=== PATIENT | female | born 1985 | race Caucasian/White ===

== ENCOUNTER 2018-04-07 00:49 | Emergency (ER) | payer BC, SELFPAY ==
[2018-04-07 00:50] VITALS: BP 179/95; PULSE 72; RESP 18; TEMP 36.4; O2SAT 98; BMI 41.7
[2018-04-07 02:03] LABS: Absolute Lymphocyte Count 0.89 X10^3/ul (0.83-4.51); Absolute Neutrophil Count 6.3 X10^3/uL (2.0-7.7); Basophil# 0.01 X10^3/uL; Basophil% 0.1 % (0-1); Eosinophil# 0.13 X10^3/uL; Eosinophils% 1.7 % (0-5); Hematocrit 37.2 % (37-47); Hemoglobin 12.1 g/dl (12.0-15.0); Lymphocyte # 0.89 X10^3/ul (4.0); Lymphocyte % 11.6 % (19-41); Mean Corp Hgb Conc 32.5 g/gl (32-36); Mean Corpuscular Hgb 27.6 pg (27.0-32.0); Mean Corpuscular Volume 84.7 fL (81-99); Mean Platelet Vol. 9.5 fl (6.2-12.0); Monocyte# 0.32 X10^3/uL; Monocyte% 4.2 % (0-10); Neutrophil # 6.33 X10^3/uL (2.7-7.7); Neutrophil % 82.1 % (47-70); POSITIVE COUNT NO; POSITIVE DIFFERENTIAL NO; POSITIVE MORPHOLOGY NO; Platelet Count 215 K/mm3 (150-450); RBC Distribution Width CV 13.1 % (11.6-14.6); RBC Distribution Width SD 40.5 fl (35.1-43.9); Red Blood Count 4.39 M/mm3 (4.2-5.4); White Blood Count 7.7 K/mm3 (4.4-11.0)
[2018-04-07 02:18] LABS: ALB/GLOB Ratio 0.7 RATIO (0.9-2.4); AST(SGOT) 16 U/L (15-37); Alanine Aminotransfer ALT/SGPT 16 U/L (13-56); Albumin, Serum 3.1 g/dL (3.2-5.0); Alkaline Phosphatase 60 U/L (45-117); Anion Gap 7 (5-15); BUN 14 mg/dL (7-18); BUN/Creat Ratio 19.1 RATIO (10-20); Calcium,Total 8.2 mg/dL (8.5-10.1); Chloride 109 mmol/L (98-107); Creatinine, Serum 0.73 mg/dL (0.55-1.02); EST Glomerular Filtration Rate 98 mL/min (>60); Est Glom Filt Rate - Afr Amer 119 mL/min (>60); Estimated Creatinine Clearance 88.31 ml/min; Globulin 4.2 g/dL (2.2-4.2); Glucose 101 mg/dL (74-106); Lipase 111 U/L (73-393); Potassium 3.9 mmol/L (3.5-5.1); Protein, Total 7.3 g/dL (6.4-8.2); Sodium Level 140 mmol/L (136-145)
[2018-04-07] MEDS: 0.9% Normal Saline 1,000 ML 1000 ML IV (02:28)
[2018-04-07] MEDS: Mag Hydrox/Al Hydrox/Simeth 30 ML UDC PO (02:28)
[2018-04-07] MEDS: Ondansetron 4 MG/2 ML Vial IV (02:28)
--- NOTE | 2018-04-07 02:47 | ED.DCSUM_ITS ---
- ER Visit Summary Date of Service: 04/07/18 Chief Complaint: Abdominal pain History of Present Illness: The patient is a 32 F who presents with burning epigastric abdominal pain which began about 6 hours ago. She also has had severe diarrhea with his episodes about every 15 minutes. She vomited once. Em esis was nonbloody and nonbilious. No fevers chest pain or shortness of breath. Physical Examination: Afebrile hypertensive vitals otherwise normal Moist mucous membranes Heart regular rate and rhythm Lungs are clear Abdomen soft nondistended she is tender to palpation in the epigastrium without guarding without rebound Alert Test Results: Laboratory studies including CBC CMP and lipase are normal. Emergency Department Course and Treatment: Patient was treated with IV fluids Zofran and given a GI cocktail. On reevaluation she feels much better and reports resolution of symptoms. I discussed prescription for nausea medications at home she states she does not think that she will need this. She understands to return for new or worsening symptoms. She was advised that of her burning epigastric pain continues she could try Pepcid or Prilosec and otherwise to follow-up with her primary care physician. Patient discharged home in improved condition. Treatment Plan: [] Disposition: Discharge Impression: Abdominal pain Vomiting This note was generated with [employer] dictation software. It may contain incorrect words, spelling, and punctuation that were not noted in review of the chart prior to signing ED Disposition - Plan for ED Patient: Chief Complaint: Abd Pain Referrals: Nadeem Delgado DO [Primary Care Provider] -
--- NOTE | 2018-04-07 02:48 | ED.DEP ---
ED Disposition - Plan for ED Patient: Chief Complaint: Abd Pain Instructions: ED Abdominal Pain Unkn Cause Referrals: Nadeem Delgado DO [Primary Care Provider] -
[2018-04-07 02:50] VITALS: PULSE 79; RESP 16; O2SAT 99
--- OUTSIDE RECORDS SUMMARY | 2018-07-09 14:16 | XMS RPT_ITS ---
:1985 Author Organization OHIP Care Team Providers Name Role Phone NADEEM HAWK Referring Unavailable NADEEM HAWK Attending Unavailable NADEEM HAWK Referring Unavailable NADEEM HAWK Referring Unavailable BHARAT JOYCE ([facility]) Attending Unavailable NADEEM HAWK Referring Unavailable BHARAT JOYCE ([facility]) Referring Unavailable LAURENT SHEPARD Attending Unavailable Nadeem Hawk Primary Care Unavailable Ramos Elias Attending Unavailable PROBLEMS PROBLEMS DATE TYPE CONDITION / CODE ATTENDING STATUS SOURCE 04/18/2018 Unknown R10.9 - Ramos Elias Active [place] Unspecified [facility] abdominal pain / Hospital R10.9(ICD-10) Repository 07/12/2017 Active Generalized NA Active [facility] abdominal pain / [place] R10.84(ICD-10) Repository 06/06/2016 Active Encounter for NA Active [facility] general adult [place] medical Repository examination without abnormal findings / Z00.00(ICD-10) 07/01/2017 Active 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 Repository / E01.0(ICD-10) 06/25/2017 Active Other intermission coordinator NA Active [facility] (current) drug [place] therapy / Repository Z79.899(ICD-10) PROCEDURES PROCEDURES No Procedure Records FoundRESULTS RESULTS DISCHARGE INSTRUCTION Observed: 04/07/2018 Status: F Source: [place] 2:49 AM [facility] REPOSITORY [facility] Medical Records Department [facility] [place] [address] Discharge Instruction 04/07/18 0248 MR#: [id number] Acct: [id number] Name: TAWNY STOLL Rep #: [id number] : 1985 32 From: Ramos Elias MD PCP: Nadeem Harris DO Status: REG ER ED Disposition - Plan for ED Patient: Chief Complaint: Abd Pain Instructions: ED Abdominal Pain Unkn Cause Referrals: Nadeem Hawk DO [Primary Care Provider] - What to do if you have Problems For any increased pain, shortness of breath, bleeding, nausea or vomiting, chest pain, or any unexpected problems, contact your Primary Care Provider. Call [facility] ([phone]) or report to the closest Emergency Room. Call 911 if necessary. 04/07/18 0249 <Electronically signed by Ramos Elias MD> Date Ramos Elias MD Cosigner Signature (If Indicated): Date CC: Nadeem Harris DO EMERGENCY DEPARTMENT Observed: 04/07/2018 Status: F Source: [place] SUMMARY 2:48 AM [facility] REPOSITORY [facility] Medical Records Department [address] [place] [address] Emergency Department Summary 04/07/18 0246 MR#: [id number] Acct: [id number] Name: TAWNY STOLL Rep #: [id number] : 1985 32 From: Ramos Elias MD PCP: Nadeem Harris DO Status: REG ER - ER Visit Summary Date of Service: 04/07/18 Chief Complaint: Abdominal pain History of Present Illness: The patient is a 32 F who presents with burning epigastric abdominal pain which began about 6 hours ago. She also has had severe diarrhea with his episodes about every 15 minutes. She vomited once. Emesis was nonbloody and nonbilious. No fevers chest pain or shortness of breath. Physical Examination: Afebrile hypertensive vitals otherwise normal Moist mucous membranes Heart regular rate and rhythm Lungs are clear Abdomen soft nondistended she is tender to palpation in the epigastrium without guarding without rebound Alert Test Results: Laboratory studies including CBC CMP and lipase are normal. Emergency Department Course and Treatment: Patient was treated with IV fluids Zofran and given a GI cocktail. On reevaluation she feels much better and reports resolution of symptoms. I discussed prescription for nausea medications at home she states she does not think that she will need this. She understands to return for new or worsening symptoms. She was advised that of her burning epigastric pain continues she could try Pepcid or Prilosec and otherwise to follow-up with her primary care physician. Patient discharged home in improved condition. Treatment Plan: [] Disposition: Discharge Impression: Abdominal pain Vomiting This note was generated with [employer] dictation software. It may contain incorrect words, spelling, and punctuation that were not noted in review of the chart prior to signing ED Disposition - Plan for ED Patient: Chief Complaint: Abd Pain Referrals: Nadeem Hawk DO [Primary Care Provider] - What to do if you have Problems For any increased pain, shortness of breath, bleeding, nausea or vomiting, chest pain, or any unexpected problems, contact your Primary Care Provider. Call [facility] ([phone]) or report to the closest Emergency Room. Call 911 if necessary. 04/07/18 0248 <Electronically signed by Ramos Elias MD> Date Ramos Elias MD Cosigner Signature (If Indicated): Date CC: Nadeem Harris DO CBC W/DIFF, AUTOMATED Collected: 04/07/2018 Status: F Source: [place] 1:55 AM [facility] REPOSITORY TYPE CODE TESTS RESULT OUT OF RANGE REFERENCE UNITS LAB L100.1000 4.4-11.0 K/mm3 Normal WBC 7.7 LAB L100.1200 4.2-5.4 M/mm3 Normal RBC 4.39 LAB L100.1300 12.0-15.0 g/dl Normal HGB 12.1 LAB L100.1400 37-47 % Normal HCT 37.2 LAB L100.1500 81-99 fL Normal MCV 84.7 LAB L100.1600 27.0-32.0 pg Normal MCH 27.6 LAB L100.1700 32-36 g/gl Normal MCHC 32.5 LAB L100.1810 11.6-14.6 % Normal RDW CV 13.1 LAB L100.1820 35.1-43.9 fl Normal RDW SD 40.5 LAB L100.1900 150-450 K/mm3 Normal PLT 215 LAB L100.2000 6.2-12.0 fl Normal MPV 9.5 LAB L100.2100 47-70 % High NEUT% 82.1 LAB L100.2200 19-41 % Low LY% 11.6 LAB L100.2300 0-10 % Normal MONO% 4.2 LAB L100.2400 0-5 % Normal EO% 1.7 LAB L100.2500 0-1 % Normal BASO% 0.1 LAB L100.2550 0.0-0.9 % Normal IM GRAN % 0.300 Result Comment: IG% - Immature Granulocytes (promyelocytes, myelocytes and metamyelocytes) > 1% indicates that a LEFT SHIFT is Present. LAB L100.2620 2.0-7.7 X10 3/uL Normal Absolute Neut 6.3 LAB L100.2720 0.83-4.51 X10 3/ul Normal Absolute Lymph 0.89 Performed By: #### L100.0100 #### [facility] [address] [place], [address] COMPREHENSIVE METABOLIC Collected: 04/07/2018 Status: F Source: [facility] 1:55 AM [facility] REPOSITORY TYPE CODE TESTS RESULT OUT OF RANGE REFERENCE UNITS LAB L501.0100 74-106 mg/dL Normal GLU 101 Result Comment: Fasting Glucose result from 100 to 125 mg/dL suggests IMPAIRED HOMEOSTASIS per A.D.A. criteria. Please note revised GLUCOSE reference range effective 2017. LAB L501.1000 7-18 mg/dL Normal BUN 14 LAB L501.1100 0.55-1.02 mg/dL Normal CREAT,SERUM 0.73 Result Comment: The validity of the calculated GFR AND GFRAA in patients over 70 years has not been determined. Clinical correlation is essential. LAB L501.1110 >60 mL/min Normal EST GFR 98 Result Comment: Non- GFR Calc LAB L501.1115 >60 mL/min Normal EST GFR - AA 119 Result Comment: GFR Calc LAB L501.1255 ml/min Normal Estimated CRCL 88.31 LAB L501.1300 10-20 RATIO Normal BUN/CRE 19.1 LAB L501.1500 6.4-8. g/dL Normal 2 T PROT 7.3 LAB L501.1800 3.2-5. g/dL Low 0 ALB 3.1 LAB L501.1950 2.2-4. g/dL Normal 2 GLOB 4.2 LAB L501.2000 0.9-2. RATIO Low 4 A/G 0.7 LAB L501.2200 8.5-10 mg/dL Low .1 CA 8.2 LAB L501.4100 15-37 U/L Normal AST 16 LAB L501.4305 45-117 U/L Normal ALK P 60 LAB L501.4405 13-56 U/L Normal ALT 16 LAB L501.4600 0.20-1 mg/dL Normal .00 T BILI 0.20 LAB L501.5300 136-14 mmol/L Normal 5 NA 140 LAB L501.5600 3.5-5. mmol/L Normal 1 K 3.9 LAB L501.5900 98-107 mmol/L High CL 109 LAB L501.6100 21.0-3 mmol/L Normal 2.0 CO2 24.0 LAB L501.6200 5-15 Normal GAP 7 Performed By: #### L500.4050, L501.2450 #### [facility] [address] [facility] [place], [place], [address] LIPASE Collected: 04/07/2018 Status: F Source: [place] 1:55 AM [facility] REPOSITORY TYPE CODE TESTS RESULT OUT OF RANGE REFERENCE UNITS LAB L501.2450 73-393 U/L Normal LIPASE 111 Performed By: #### L500.4050, L501.2450 #### [facility] [address] [place], [address] CNOV Observed: 04/01/2018 Status: COMPLETED Source: [place] 9:00 AM [facility] REPOSITORY Office Visit (WOOB) TAWNY STOLL ([id number]) 1985 F Date Time Provider Department 04/01/18 9:00 AM LAURENT SHEPARD During your visit today, we recorded the following information about you: Blood pressure Weight Height Last Period 116/80 105.2 kg 1.594 m 03/27/18 Laurent Shepard MD 04/01/2018 9:20 AM Signed Tawny Stoll is a 32 year old who presents for her annual gynecologic exam without complaints. Some clots w/ menses, new for her. Menses regular and mostly light for 4 days on the OCPs. Menses: cycles every 28 days and 4 days of flow. Contraception: oral contraceptives HPV vaccine: No Last Pap: 2016 normal HPV: negative History of abnormal pap: Yes Last mammogram: never Sexually active: Yes Obstetric History T2 L2 SAB0 TAB0 Ectopic0 Multiple0 Live Births2 PAST MEDICAL HISTORY Diagnosis Date - Abnormal Pap smear - Abnormal Pap smear of cervix - Chlamydia 2008 - Hypercholesteremia 05/2014 - Ovarian cyst PAST SURGICAL HISTORY Procedure Laterality Date - COLP CERVIX UP VAG LEEP BX 09/08/12 - EXTRACTION ERUPTED TOOTH/EXR 12/23/2014 no difficulty with anesthesia - L'SCOPE CAVITY/CYST SINGLE/MULTIPLE 12/14/2016 Laparascopy with lysis of adhesions of bowel to anterior abdominal wall and mauro. ovarian cystotomy - PAST SURGICAL HISTORY OF Mole removed FAMILY HISTORY Problem Relation Age of Onset - other (FIBROID UTERUS) Mother - other (ENDOMETRIOSIS) Mother - Hypertension Father - Stroke Maternal Grandfather - Heart Maternal Grandfather - Cancer Paternal Grandmother BREAST AND lung, coal exposure - Diabetes Paternal Grandmother - Stroke Paternal Grandfather - Lipids Paternal Grandfather - Heart Paternal Grandfather SOCIAL HISTORY Social History Substance Use Topics - Smoking status: Never Smoker - Smokeless tobacco: Never Used - Alcohol use No REVIEW OF SYSTEMS Abdomen: No abdominal pain, nausea, vomiting, diarrhea, or constipation. No bloating, early satiety, indigestion, or increased flatulence. Bladder: No dysuria, gross hematuria, urinary frequency, urinary urgency, or incontinence. Breast: No breast lumps, nipple d/c, overlying skin changes, redness or skin retraction. Allergies and current medication updated:Yes EXAM: BP 116/80 Ht 5' 2.75 (1.59m) Wt 232 lb (105.2kg) LMP 03/27/2018 BMI 41.42 kg/(m2). GENERAL: pleasant, female in no apparent distress HEENT: Normocephalic, atraumatic, mucus membranes moist and no lesions NECK: Supple, full range of motion, no adenopathy and thyroid normal DERMATOLOGY: Normal, without lesions, non-icteric and non-hirsute BREAST: soft, non-tender, symmetric, no dominant mass, normal nipple-areolar complex, no lymphadenopathy and no nipple discharge CHEST: Normal inspiratory effort ABDOMEN: soft, non-tender and no masses PELVIC: external genitalia normal, normal Bartholin's glands, urethra, [place]'s glands, no vulvar lesions, no cervical lesions, good vaginal support, physiologic discharge present, normal appearing perineal body and perianal region BIMANUAL: uterus normal size, shape and consistency, no adnexal masses and non-tender RECTOVAGINAL: deferred. NEURO: alert and oriented x3,exam grossly non-focal EXTREMITIES: normal ASSESSMENT/PLAN: 1) Health maintenance: Pap/HPV up to date. Mammogram starting age 40. 2) Contraception: oral contraceptives . Contraceptive options reviewed and information provided. 3) STD screening: Declined STD check. 4) Follow up one year or sooner as needed D/w her recommend PNV/folate in case of Laurent Shepard MD Referring Provider: SELF [200] Allergies As of Date: 04/01/2018 (No Known Allergies) Date Reviewed: 04/01/2018 Reviewed by: Laurent Shepard - Fully Assessed Primary Visit Diagnosis:Encounter for gynecological examination (general) (routine) without abnormal findings [Z01.419] Order(s):Norgestimate-Ethinyl Estradiol (ORTHO TRI-CYCLEN, 28,) 0.18/0.215/0.25 mg-35 mcg (28) tabTake 1 tablet by mouth once daily.Disp: 3 PackageRfl: 4 Prescriptions as of 04/01/2018 Sig: NORGESTIMATE-ETHINYL ESTRADIO* Take 1 tablet by mouth once d* Problem List As Of Date 04/01/2018 Noted Resolved Well adult exam [Z00.00] INVALID FOR*07/18/2015 Bleeding in early [O20.9] INVALID FOR*10/30/2013 More... History of LEEP (loop electrosurgical excision *INVALID FOR*07/18/2015 More... GBS (group B streptococcus) UTI complicating pr*INVALID FOR*07/18/2015 Supervision of normal first [Z34.00] INVALID FOR*07/18/2015 Obesity in [O99.210] INVALID FOR*05/01/2016 More... History of LEEP (loop electrosurgical excision *INVALID FOR*05/01/2016 More... History of ovarian cyst [Z87.42] INVALID FOR*05/01/2016 More... Family history of Down syndrome [Z82.79] INVALID FOR*05/01/2016 More... More... Encounter for supervision of normal i*INVALID FOR*05/01/2016 More... Hypertriglyceridemia [E78.1] INVALID FOR* Well adult exam [Z00.00] INVALID FOR* Prescriptions ordered this encounter Disp Refills Start End NORGESTIMATE-ETHINYL ESTRADIOL 0.18 * 3 Pa* 4 04/01/2018 Route: ORAL Sig: Take 1 tablet by mouth once daily. Medications Discontinued During This Encounter Norgestimate-Ethinyl Estradiol (ORTH* 3 Pa* 4 03/20/2017 04/01/2018 Route: ORAL Sig: Take 3 tablets by mouth once daily. Disc: Reason for discontinue is not on file. Disposition: Return in 1 year (on 04/01/2019) for Annual Exam. Follow-up and Disposition History Recorded Encounter Status:Closed by LAURENT SHEPARD MD on 04/01/18 PROGRESS Observed: 04/01/2018 Status: COMPLETED Source: [place] 8:59 AM [facility] ID: [id number] Author: Laurent Shepard Service: (none) Author Type: Physician Type: Progress Notes Filed: 04/01/2018 9:20 AM Note Text: Tawny Stoll is a 32 year old who presents for her annual gynecologic exam without complaints. Some clots w/ menses, new for her. Menses regular and mostly light for 4 days on the OCPs. Menses: cycles every 28 days and 4 days of flow. Contraception: oral contraceptives HPV vaccine: No Last Pap: 2017 normal HPV: negative History of abnormal pap: Yes Last mammogram: never Sexually active: Yes Obstetric History T2 L2 SAB0 TAB0 Ectopic0 Multiple0 Live Births2 PAST MEDICAL HISTORY Diagnosis Date - Abnormal Pap smear - Abnormal Pap smear of cervix - Chlamydia 2008 - Hypercholesteremia 05/2014 - Ovarian cyst PAST SURGICAL HISTORY Procedure Laterality Date - COLP CERVIX UP VAG LEEP BX 09/08/12 - EXTRACTION ERUPTED TOOTH/EXR 12/23/2014 no difficulty with anesthesia - L'SCOPE CAVITY/CYST SINGLE/MULTIPLE 12/14/2016 Laparascopy with lysis of adhesions of bowel to anterior abdominal wall and mauro. ovarian cystotomy - PAST SURGICAL HISTORY OF Mole removed FAMILY HISTORY Problem Relation Age of Onset - other (FIBROID UTERUS) Mother - other (ENDOMETRIOSIS) Mother - Hypertension Father - Stroke Maternal Grandfather - Heart Maternal Grandfather - Cancer Paternal Grandmother BREAST AND lung, coal exposure - Diabetes Paternal Grandmother - Stroke Paternal Grandfather - Lipids Paternal Grandfather - Heart Paternal Grandfather SOCIAL HISTORY Social History Substance Use Topics - Smoking status: Never Smoker - Smokeless tobacco: Never Used - Alcohol use No REVIEW OF SYSTEMS Abdomen: No abdominal pain, nausea, vomiting, diarrhea, or constipation. No bloating, early satiety, indigestion, or increased flatulence. Bladder: No dysuria, gross hematuria, urinary frequency, urinary urgency, or incontinence. Breast: No breast lumps, nipple d/c, overlying skin changes, redness or skin retraction. Allergies and current medication updated:Yes EXAM: BP 116/80 Ht 5' 2.75 (1.59m) Wt 232 lb (105.2kg) LMP 03/27/2018 BMI 41.42 kg/(m2). GENERAL: pleasant, female in no apparent distress HEENT: Normocephalic, atraumatic, mucus membranes moist and no lesions NECK: Supple, full range of motion, no adenopathy and thyroid normal DERMATOLOGY: Normal, without lesions, non-icteric and non-hirsute BREAST: soft, non-tender, symmetric, no dominant mass, normal nipple-areolar complex, no lymphadenopathy and no nipple discharge CHEST: Normal inspiratory effort ABDOMEN: soft, non-tender and no masses PELVIC: external genitalia normal, normal Bartholin's glands, urethra, [place]'s glands, no vulvar lesions, no cervical lesions, good vaginal support, physiologic discharge present, normal appearing perineal body and perianal region BIMANUAL: uterus normal size, shape and consistency, no adnexal masses and non-tender RECTOVAGINAL: deferred. NEURO: alert and oriented x3,exam grossly non-focal EXTREMITIES: normal ASSESSMENT/PLAN: 1) Health maintenance: Pap/HPV up to date. Mammogram starting age 40. 2) Contraception: oral contraceptives . Contraceptive options reviewed and information provided. 3) STD screening: Declined STD check. 4) Follow up one year or sooner as needed D/w her recommend PNV/folate in case of Laurent Shepard MD PROGRESS Observed: 09/27/2017 Status: COMPLETED Source: [place] 11:06 AM [facility] REPOSITORY [facility] ID: [id number] Author: Hernando Lui Service: (none) Author Type: Physician Type: Progress Notes Filed: 09/27/2017 11:33 AM Note Text: Patient presents with: swelling on left side of face: woke up this am with symptoms HPI: Woke this morning with left>right face swelling. Swelling seems to be going down. Some pain along the left jaw. [place] cold last night, hot today. Upset stomach earlier this week. Has a scabbed sore behind her left ear. No tooth pain, numbness, earache, hearing loss, cough, rhinorrhea, or sore throat. MEDICATIONS: Norgestimate-Ethinyl Estradiol (ORTHO TRI-CYCLEN, 28,) 0.18/0.215/0.25 mg-35 mcg (28) tab Take 3 tablets by mouth once daily. ALLERGIES: ALLERGIES No Known Allergies VITALS: BP 108/68 Pulse 74 Temp 37.3 ?C (99.1 ?F) (Tympanic) Resp 16 Wt 104.4 kg (230 lb 3.2 oz) BMI 41.10 kg/m? PHYSICAL EXAM: GEN: pleasant, no acute distress, alert. HEENT: PERRL, EOMI, MMM, No dental carries or fractures. potential mild left jaw swelling. No TMJ tenderness. TMs and canals clear. No palpable parotid swelling. 1cm dry flat eschar/ulcer left occipital lesion without induration or erythema. NECK: supple, no lymphadenopathy, no thyromegaly HEART: regular rate, regular rhythm, no murmurs LUNGS: clear to auscultation, no wheezes or crackles, no increased WOB EXT: no clubbing, no cyanosis, no edema ASSESSMENT/PLAN: 1. Swelling of left side of face - ICD9: 784.2, ICD10: R22.0 (primary diagnosis) 2. Lesion of skin of scalp - ICD9: 709.9, ICD10: L98.9 Improving subjective swelling. Continue to monitor for swelling, parotitis, cellulitis. She may treat with cold compress. Hernando Lui MD CNOV Observed: 09/27/2017 Status: COMPLETED Source: [place] 11:00 AM [facility] REPOSITORY Office Visit (WSTR) TAWNY STOLL ([id number]) 1985 F Date Time Provider Department 09/27/17 11:00 AM HERNANDO LUI [facility] During your visit today, we recorded the following information about you: Temperature Pulse Respiration Blood pressure 99.1 degrees 74/minute 16/minute 108/68 Weight 104.4 kg Hernando Lui MD 09/27/2017 11:33 AM Signed Patient presents with: swelling on left side of face: woke up this am with symptoms HPI: Woke this morning with left>right face swelling. Swelling seems to be going down. Some pain along the left jaw. [place] cold last night, hot today. Upset stomach earlier this week. Has a scabbed sore behind her left ear. No tooth pain, numbness, earache, hearing loss, cough, rhinorrhea, or sore throat. MEDICATIONS: Norgestimate-Ethinyl Estradiol (ORTHO TRI-CYCLEN, 28,) 0.18/0.215/0.25 mg-35 mcg (28) tab Take 3 tablets by mouth once daily. ALLERGIES: ALLERGIES No Known Allergies VITALS: BP 108/68 Pulse 74 Temp 37.3 ?C (99.1 ?F) (Tympanic) Resp 16 Wt 104.4 kg (230 lb 3.2 oz) BMI 41.10 kg/m? PHYSICAL EXAM: GEN: pleasant, no acute distress, alert. HEENT: PERRL, EOMI, MMM, No dental carries or fractures. potential mild left jaw swelling. No TMJ tenderness. TMs and canals clear. No palpable parotid swelling. 1cm dry flat eschar/ulcer left occipital lesion without induration or erythema. NECK: supple, no lymphadenopathy, no thyromegaly HEART: regular rate, regular rhythm, no murmurs LUNGS: clear to auscultation, no wheezes or crackles, no increased WOB EXT: no clubbing, no cyanosis, no edema ASSESSMENT/PLAN: 1. Swelling of left side of face - ICD9: 784.2, ICD10: R22.0 (primary diagnosis) 2. Lesion of skin of scalp - ICD9: 709.9, ICD10: L98.9 Improving subjective swelling. Continue to monitor for swelling, parotitis, cellulitis. She may treat with cold compress. Hernando Lui MD Referring Provider: SELF [200] Allergies As of Date: 09/27/2017 (No Known Allergies) Date Reviewed: 09/27/2017 Reviewed by: Fiorella Cunha LPN - Fully Assessed Reason for Visit: swelling on left side of face [Other] Cmt: woke up this am with symptoms Primary Visit Diagnosis:Swelling of left side of face [R22.0] Other Visit Diagnosis:Lesion of skin of scalp [L98.9] Prescriptions as of 09/27/2017 Sig: NORGESTIMATE-ETHINYL ESTRADIO* Take 3 tablets by mouth once * Problem List As Of Date 09/27/2017 Noted Resolved Well adult exam [Z00.00] INVALID FOR*07/18/2015 Bleeding in early [O20.9] INVALID FOR*10/30/2013 More... History of LEEP (loop electrosurgical excision *INVALID FOR*07/18/2015 More... GBS (group B streptococcus) UTI complicating pr*INVALID FOR*07/18/2015 Supervision of normal first [Z34.00] INVALID FOR*07/18/2015 Obesity in [O99.210] INVALID FOR*05/01/2016 More... History of LEEP (loop electrosurgical excision *INVALID FOR*05/01/2016 More... History of ovarian cyst [Z87.42] INVALID FOR*05/01/2016 More... Family history of Down syndrome [Z82.79] INVALID FOR*05/01/2016 More... More... Encounter for supervision of normal i*INVALID FOR*05/01/2016 More... Hypertriglyceridemia [E78.1] INVALID FOR* Well adult exam [Z00.00] INVALID FOR* Encounter Status:Closed by HERNANDO LUI MD on 09/27/17 PROGRESS Observed: 07/12/2017 Status: COMPLETED Source: [place] 11:00 AM [facility] O ID: [id number] Author: Lyndsey Bradshaw Service: (none) Author Type: (none) Type: Progress Notes Filed: 07/12/2017 11:00 AM Note Text: Radiology Service Progress Note PATIENT NAME: Tawny Stoll DATE OF SERVICE: July 12, 2017 TIME: 11:00 AM PATIENT IDENTITY VERIFICATION COMPLETED USING TWO (2) METHODS: Patient confirmed name verbally and Date of . PATIENT GENDER DATA: Female. status: : No status: NO. PATIENT RELEVANT IMPLANT DATA REVIEWED: Not Applicable RADIOLOGY DEPARTMENT: CT; Exam(s) Completed: Abdomen/Pelvis PERIPHERAL IV DATA: Not applicable SIGNED BY: Lyndsey Bradshaw July 12, 2017 11:[address] ABD/PEL WO IVCON Observed: 07/12/2017 Status: F Source: [place] 10:57 AM [facility] * * *Final Report* * * DATE OF EXAM: Jul 12 2017 10:57AM [facility] 0531 - CT ABD/PEL WO IVCON / PROCEDURE REASON: Generalized abdominal pain * * * * Physician Interpretation * * * * EXAMINATION: CT ABDOMEN AND PELVIS WITHOUT IV CONTRAST CLINICAL HISTORY: Abdominal pain TECHNIQUE: Non-IV contrast imaging of the abdomen and pelvis was performed using standard technique, scanning from just above the dome of the diaphragm to the symphysis pubis. Unenhanced imaging is limited for the evaluation of some intra-abdominal and pelvic pathology. MQ: [id number]_3 Contrast: IV: None Oral: 50 ml of 50ML Omnipaque [address] Radiation dose: Integrated Dose-length product (DLP) for this visit = 927 mGy*cm. CT Dose Reduction Employed: Automated exposure control (AEC) COMPARISON: None. RESULT: Abdomen / Pelvis: Liver: Unremarkable. Biliary: The gallbladder is unremarkable. Spleen: No splenomegaly. Pancreas: Unremarkable. Adrenals: No mass. Kidneys: No calculus, hydronephrosis or finding to suggest a cyst or mass in the unenhanced kidney. GI Tract: No bowel dilation. Normal appendix. Lymph Nodes: No lymphadenopathy. Mesentery/peritoneum: No ascites. Retroperitoneum: No mass. Vasculature: No abdominal aortic or iliac artery aneurysm. Pelvis: No mass or ascites. Bones/Soft Tissues: No acute abnormality. Lower thorax: Unremarkable. IMPRESSION: NO ACUTE FINDING IN THE ABDOMEN OR PELVIS. [facility] Trans[facility] Date/Time: Jul 12 2017 9:09P Dictated by : JERONIMO RYAN MD This examination was interpreted and the report reviewed and electronically signed by: JERONIMO RYAN MD on Jul 12 2017 9:14PM EST [id number] PROGRESS Observed: 07/03/2017 Status: COMPLETED Source: [place] 4:11 PM [facility] REPOSITORY HNO ID: [id number] Author: Bharat Montilla (Criminal Investigator) SEAN Joyce Service: (none) Author Type: Nurse Practitioner Type: Progress Notes Filed: 07/04/2017 8:16 AM Note Text: HPI/CC: Tawny Stoll is a 32 year old female who presents for Abdominal Pain. Was seen by PCP for lower abdominal pain on palpation. At that time thought stool to be the cause, recommended that id patient continues with discomfort after BM to call office. Reports associated increased appetite. Patient continues to have discomfort. Denies N/V, diarrhea, change in BMs, UTI symptoms, fever, chills. ROS as above, otherwise non-contributory. Reviewed PMHx, PSHx, social Hx, medications and allergies. PHYSICAL EXAMINATION: BP 116/76 Pulse 60 Resp 14 Wt 103.9 kg (229 lb) LMP 06/25/2017 BMI 40.89 kg/m2 General appearance: Well appearing, alert, in no acute distress, well-hydrated, well nourished. Skin: Skin color, texture, turgor normal, no suspicious rashes or lesions Lungs: Lungs clear to auscultation. No wheezing, rhonchi, rales Heart: RRR without murmur, gallop, or rubs. No ectopy Abdomen: Negative findings: no masses palpable, no organomegaly and soft, Positive findings: tenderness moderate generalized ASSESSMENT/PLAN: 1. Generalized abdominal pain - ICD9: 789.07, ICD10: R10.84 - Work up with CT Abdomen/Pelvis - CT ABD/PEL WO IVCON - UA DIP B/O - HCG QUAL UR B/O - f/u PRN Bharat Joyce CNP CNOV Observed: 07/03/2017 Status: COMPLETED Source: [place] 3:40 PM [facility] REPOSIT[facility] Office Visit (FAMPWS) TAWNY STOLL ([id number]) 1985 F Date Time Provider Department 07/03/17 3:40 PM BHARAT JOYCE (SEAN) FAMPWS During your visit today, we recorded the following information about you: Pulse Respiration Blood pressure Weight 60/minute 14/minute 116/76 103.9 kg Bharat Joyce CNP, CNP 07/04/2017 8:16 AM Signed HPI/CC: Tawny Stoll is a 32 year old female who presents for Abdominal Pain. Was seen by PCP for lower abdominal pain on palpation. At that time thought stool to be the cause, recommended that id patient continues with discomfort after BM to call office. Reports associated increased appetite. Patient continues to have discomfort. Denies N/V, diarrhea, change in BMs, UTI symptoms, fever, chills. ROS as above, otherwise non-contributory. Reviewed PMHx, PSHx, social Hx, medications and allergies. PHYSICAL EXAMINATION: BP 116/76 Pulse 60 Resp 14 Wt 103.9 kg (229 lb) LMP 06/25/2017 BMI 40.89 kg/m2 General appearance: Well appearing, alert, in no acute distress, well-hydrated, well nourished. Skin: Skin color, texture, turgor normal, no suspicious rashes or lesions Lungs: Lungs clear to auscultation. No wheezing, rhonchi, rales Heart: RRR without murmur, gallop, or rubs. No ectopy Abdomen: Negative findings: no masses palpable, no organomegaly and soft, Positive findings: tenderness moderate generalized ASSESSMENT/PLAN: 1. Generalized abdominal pain - ICD9: 789.07, ICD10: R10.84 - Work up with CT Abdomen/Pelvis - CT ABD/PEL WO IVCON - UA DIP B/O - HCG QUAL UR B/O - f/u PRN Bharat Joyce CNP Referring Provider: SELF [200] Allergies As of Date: 07/03/2017 (No Known Allergies) Date Reviewed: 07/03/2017 Reviewed by: Milagros Rao Ma - Fully Assessed Reason for Visit: Abdominal Pain [1] Primary Visit Diagnosis:Generalized abdominal pain [R10.84] Order(s):CT ABD/PEL WO IVCON [[id number]] Order #: [id number] FUTURE [] enteric contrast (radiology procedure)Take 1 Each by mouth one time only for [address] ABD/PEL WO Routine order Administer, As Directed One Time Only, via Oral, Rectal, both Oral and Rectal, Enteric Tube, Stoma or Indwelling Catheter, Enteric Contrast as designated per enteric contrast guidelinesDisp: 1 EachRfl: 0 UA DIP B/O [[id number]] Order #: [id number] HCG QUAL UR B/O [[id number]] Order #: [id number] Prescriptions as of 07/03/2017 Sig: NORGESTIMATE-ETHINYL ESTRADIO* Take 3 tablets by mouth once * ENTERIC CONTRAST (RADIOLOGY P* Take 1 Each by mouth one time* Problem List As Of Date 07/03/2017 Noted Resolved Well adult exam [Z00.00] INVALID FOR*07/18/2015 Bleeding in early [O20.9] INVALID FOR*10/30/2013 More... History of LEEP (loop electrosurgical excision *INVALID FOR*07/18/2015 More... GBS (group B streptococcus) UTI complicating pr*INVALID FOR*07/18/2015 Supervision of normal first [Z34.00] INVALID FOR*07/18/2015 Obesity in [O99.210] INVALID FOR*05/01/2016 More... History of LEEP (loop electrosurgical excision *INVALID FOR*05/01/2016 More... History of ovarian cyst [Z87.42] INVALID FOR*05/01/2016 More... Family history of Down syndrome [Z82.79] INVALID FOR*05/01/2016 More... More... Encounter for supervision of normal i*INVALID FOR*05/01/2016 More... Hypertriglyceridemia [E78.1] INVALID FOR* Well adult exam [Z00.00] INVALID FOR* Prescriptions ordered this encounter Disp Refills Start End ENTERIC CONTRAST (RADIOLOGY PROCEDUR* 1 Ea* 0 07/03/2017 07/03/2017 Class: In Office Route: ORAL Sig: Take 1 Each by mouth one time only for [address] ABD/PEL WO Routine order Administer, As Directed One Time Only, via Oral, Rectal, both Oral and Rectal, Enteric Tube, Stoma or Indwelling Catheter, Enteric Contrast as designated per enteric contrast guidelines Encounter Status:Closed by BHARAT JOYCE CNP on 07/04/17 COMP METABOLIC PANEL Collected: 07/01/2017 Status: F Source: [place] 8:21 AM [facility] REPOSITORY TYPE CODE TESTS RESULT OUT OF REFERENCE UNITS RANGE LAB TP 6.3-8.0 g/dL Protein, Total 7.3 LAB ALB 3.9-4.9 g/dL Albumin 3.9 LAB CA 8.5-10.2 mg/dL Calcium, Total 8.9 LAB TBIL 0.2-1.3 mg/dL Bilirubin, Total 0.2 LAB ALKP 32-117 U/L Alkaline Phosphatase 59 LAB AST 13-35 U/L AST 17 LAB GLU 74-99 mg/dL Glucose 78 Result Comment: The Canadian Diabetes Association (ADA) provides guidance for cutoff values for fasting glucose and random glucose. The ADA defines fasting as no caloric intake for at least 8 hours. Fas ting plasma glucose results between 100 to 125 mg/dL indicate increased risk for diabetes (prediabetes). Fasting plasma glucose results greater than or equal to 126 mg/dL meet the criteria for diagnosis of diabetes. In the absence of unequivocal hyperglycemia, results should be confirmed by repeat testing. In a patient with classic symptoms of hyperglycemia or hyperglycemic crisis, random plasma glucose results greater than or equal to 200 mg/dL meet the criteria for diagnosis of diabetes. Reference: Standards of Medical Care in Diabetes 2016, Canadian Diabetes Association. Diabetes Care. 2016.39(Suppl 1). LAB BUN 7-21 mg/dL BUN 11 LAB CRET 0.58-0.96 mg/dL Creatinine 0.83 LAB NA 136-144 mmol/L Sodium 140 LAB K 3.7-5.1 mmol/L Potassium 3.9 LAB CL 97-105 mmol/L Chloride 101 LAB CO2 22-30 mmol/L CO2 26 LAB AGAP 9-18 mmol/L Anion Gap 13 LAB ALT 7-38 U/L ALT 13 LAB GFRAA eGFR- Amer. >60 LAB GFRNAA . eGFR-All Other Races >60 Result Comment: eGFR (Estimated GFR) Units of measure: mL/min/1.73 meters squared eGFR is derived from the reexpressed MDRD Study equation using the following parameters: serum creatinine, age, gender and race. The creatinine assay has been calibrated to be traceable to IDMS. An eGFR <60 mL/min/1.73m2 for >3 months is consistent with chronic kidney disease. Refer to KDOQI guidelines for clinical interpretation. In patients with unstable renal function, e.g. those with acute kidney injury, the eGFR may not accurately reflect actual GFR. Performed By: #### CMP, FT4, T3, TSH #### [facility] [address] [place], [place] [address] FREE T4 Collected: 07/01/2017 Status: F Source: [place] 8:21 AM [facility] REPOSITORY TYPE CODE TESTS RESULT OUT OF RANGE REFERENCE UNITS LAB FT4 0.9-1.7 ng/dL Free T4 1.0 Performed By: #### CMP, FT4, T3, TSH #### [facility] [address] [place], [place] [address] T3 Collected: 07/01/2017 Status: F Source: [facility] 8:21 AM [facility] REPOSITORY TYPE CODE TESTS RESULT OUT OF RANGE REFERENCE UNITS LAB T3 79-165 ng/dL T3 151 Performed By: #### CMP, FT4, T3, TSH #### [facility] [address] [place], [place] [address] TSH Collected: 07/01/2017 Status: F Source: [place] 8:21 AM [facility] REPOSITORY TYPE CODE TESTS RESULT OUT OF RANGE REFERENCE UNITS LAB TSH 0.400-5.500 uU/mL TSH 1.210 Result Comment: If the patient is , TSH reference range varies by gestational period: First Trimester 0.100-2.500 uU/mL Second Trimester 0.200-3.000 uU/mL Third Trimester 0.300-3.000 uU/mL References: 1. Cohen L, Tl M, Av EK, et al. Management of Thyroid Dysfunction during and : An Endocrine Society Clinical Practice Guideline. J Clin Endocrinol Metab, 2012:97:2063-1724. 2. Corby HERNÁNDEZ. Overview of thyroid disease in . UpToDate. 2016. Accessed on October 07, 2015. Performed By: #### CMP, FT4, T3, TSH #### [facility] [address] [place], [place] [address] PROGRESS Observed: 07/01/2017 Status: COMPLETED Source: [place] 7:50 AM [facility] REPOSIT[facility] HNO ID: [id number] Author: Nadeem Hawk Service: (none) Author Type: Physician Type: Progress Notes Filed: 07/01/2017 8:27 AM Note Text: CC: Tawny Stoll is a 32 year old female who presents to the office for a physical HPI: Hyperlipidemia, total and LDL Cholesterol, Total Date Value Ref Range Status 06/25/2017 260 (H) <200 mg/dL Final Comment: <200 mg/dL, Desirable 200-239 mg/dL, Borderline high >239 mg/dL, High HDL Cholesterol Date Value Ref Range Status 06/25/2017 83 >39 mg/dL Final Comment: 40-59 mg/dL, Acceptable >59 mg/dL, High: Negative risk factor for coronary heart disease <40 mg/dL, Low: Positive risk factor for coronary heart disease LDL Cholesterol Date Value Ref Range Status 06/25/2017 150 (H) <100 mg/dL Final Comment: <100 mg/dL, Optimal 100-129 mg/dL, Near optimal/above optimal 130-159 mg/dL, Borderline high 160-189 mg/dL, High >189 mg/dL, Very high Secondary prevention optimal LDL Cholesterol levels are recommended to be < 70 mg/dL Triglyceride Date Value Ref Range Status 06/25/2017 134 <150 mg/dL Final Comment: <150 mg/dL, Normal 150-199 mg/dL, Borderline high 200-499 mg/dL, High >499 mg/dL, Very high Need for fasting glucose for insurance purposes Low back pain, increased with prolonged sitting then getting up to stand, sits for 8-9 hours per day at her job. No new paresthesias or injuries, no bowel or bladder changes. HM: UTD PAST MEDICAL HISTORY Diagnosis Date - Abnormal Pap smear - Abnormal Pap smear of cervix - Chlamydia 2008 - Hypercholesteremia 05/2014 - Ovarian cyst PAST SURGICAL HISTORY Procedure Laterality Date - COLP CERVIX UP VAG LEEP BX 09/08/12 - EXTRACTION ERUPTED TOOTH/EXR 12/23/2014 no difficulty with anesthesia - L'SCOPE CAVITY/CYST SINGLE/MULTIPLE 12/14/2016 Laparascopy with lysis of adhesions of bowel to anterior abdominal wall and mauro. ovarian cystotomy - PAST SURGICAL HISTORY OF Mole removed Social History: Social History Substance Use Topics - Smoking status: Never Smoker - Smokeless tobacco: Never Used - Alcohol use No FAMILY HISTORY Problem Relation Age of Onset - FIBROID UTERUS [OTHER] Mother - ENDOMETRIOSIS [OTHER] Mother - Hypertension Father - Stroke Maternal Grandfather - Heart Maternal Grandfather - Cancer Paternal Grandmother BREAST AND lung, coal exposure - Diabetes Paternal Grandmother - Stroke Paternal Grandfather - Lipids Paternal Grandfather - Heart Paternal Grandfather Current Outpatient prescriptions: Norgestimate-Ethinyl Estradiol (ORTHO TRI-CYCLEN, 28,) 0.18/0.215/0.25 mg-35 mcg (28) tab Take 3 tablets by mouth once daily. ibuprofen (MOTRIN) 600 mg tablet Take 1 tablet by mouth every 6 hours as needed for Pain. FOR PAIN. Allergies: ALLERGIES No Known Allergies ROS: See HPI PE: 07/01/17 0744 BP: 122/80 Pulse: 60 Resp: 16 Temp: 36.1 ?C (97 ?F) TempSrc: Left Tympanic Weight: 103.4 kg (228 lb) Gen: AANDO, NAD, non-toxic appearing, Pleasant, cooperative HEENT: NT/AC, PERRLA, EOMs intact b/l, nares clear and patent b/l, pharynx without erythema, exudate or lesions. Uvula midline. EACs without erythema or debris. TMs pearly lockhart with intact landmarks b/l. Neck: supple, No cervical LAD, mild NT thyromegaly, no carotid bruits CV: RRR, normal S1 and S2, no murmurs, no gallops, no rubs, Pulses 2+ and symmetric in UE and LE b/l Lungs: normal respiratory effort, CTA b/l, no wheezing or rhonchi or rales Abd: soft, obese, NT, ND, +BS, no hepatosplenomegaly MS: mild SI joint TTP, overall normal ROM Neuro: CN II-XII intact b/l, strength 5/5 b/l UE and LE, DTRs 2/4 UE and LE, sensation intact. Skin: warm, dry, intact, No rashes or lesions on exposed skin. ASSESSMENT/PLAN: 1. Well adult exam - ICD9: V70.0, ICD10: Z00.00 (primary diagnosis) - Encouraged monthly Breast Self Exam - Follow up for annual exam in one year. - COMP METABOLIC PANEL 2. Chronic midline low back pain without sciatica - ICD9: 724.2, 338.29, ICD10: M54.5, G89.29 Chronic low back pain - Warm moist heat for 20 min three times a day - NSAIDS- see orders - Xrays- see orders - LUMBOSACRAL SUPPORT - XR LUMBAR GENERAL 3V AP/LAT/L5-S1 - CONSULT TO CHIROPRACTOR 3. Hypertriglyceridemia - ICD9: 272.1, ICD10: E78.1 - suboptimal control - Encouraged following a low fat, low cholesterol diet. - Discussed the benefits of regular aerobic exercise and weight loss. - Check fasting lipid panel and ALT in 6 months. 4. Thyromegaly - ICD9: 240.9, ICD10: E01.0 - labs as ordered - TSH BLD - T4 FREE/FREE THYROX - T3 BLD Nadeem Hawk DO To ER if develops chest pain, shortness of breath, or severe worsening of symptoms. Discussed risks, benefits, alternatives, and potential side effects of medications. Patient expressed understanding and agreed with the plan. Nadeem Hawk DO [address] [place] [address] MICHAEL Observed: 07/01/2017 Status: COMPLETED Source: [place] 7:40 AM [facility] RE[facility] Office Visit (FAMPWS) TAWNY STOLL ([id number]) 1985 F Date Time Provider Department 07/01/17 7:40 AM NADEEM HAWK [place] During your visit today, we recorded the following information about you: Temperature Pulse Respiration Blood pressure 97 degrees 60/minute 16/minute 122/80 Weight Last Period 103.4 kg 06/25/17 Nadeem Hawk DO 07/01/2017 8:27 AM Signed CC: Tawny S Mango is a 32 year old female who presents to the office for a physical HPI: Hyperlipidemia, total and LDL Cholesterol, Total Date Value Ref Range Status 06/25/2017 260 (H) ANDlt;200 mg/dL Final Comment: ANDlt;200 mg/dL, Desirable 200-239 mg/dL, Borderline high ANDgt;239 mg/dL, High HDL Cholesterol Date Value Ref Range Status 06/25/2017 83 ANDgt;39 mg/dL Final Comment: 40-59 mg/dL, Acceptable ANDgt;59 mg/dL, High: Negative risk factor for coronary heart disease ANDlt;40 mg/dL, Low: Positive risk factor for coronary heart disease LDL Cholesterol Date Value Ref Range Status 06/25/2017 150 (H) ANDlt;100 mg/dL Final Comment: ANDlt;100 mg/dL, Optimal 100-129 mg/dL, Near optimal/above optimal 130-159 mg/dL, Borderline high 160-189 mg/dL, High ANDgt;189 mg/dL, Very high Secondary prevention optimal LDL Cholesterol levels are recommended to be ANDlt; 70 mg/dL Triglyceride Date Value Ref Range Status 06/25/2017 134 ANDlt;150 mg/dL Final Comment: ANDlt;150 mg/dL, Normal 150-199 mg/dL, Borderline high 200-499 mg/dL, High ANDgt;499 mg/dL, Very high Need for fasting glucose for insurance purposes Low back pain, increased with prolonged sitting then getting up to stand, sits for 8-9 hours per day at her job. No new paresthesias or injuries, no bowel or bladder changes. HM: UTD PAST MEDICAL HISTORY Diagnosis Date - Abnormal Pap smear - Abnormal Pap smear of cervix - Chlamydia 2008 - Hypercholesteremia 05/2014 - Ovarian cyst PAST SURGICAL HISTORY Procedure Laterality Date - COLP CERVIX UP VAG LEEP BX 09/08/12 - EXTRACTION ERUPTED TOOTH/EXR 12/23/2014 no difficulty with anesthesia - L'SCOPE CAVITY/CYST SINGLE/MULTIPLE 12/14/2016 Laparascopy with lysis of adhesions of bowel to anterior abdominal wall and mauro. ovarian cystotomy - PAST SURGICAL HISTORY OF Mole removed Social History: Social History Substance Use Topics - Smoking status: Never Smoker - Smokeless tobacco: Never Used - Alcohol use No FAMILY HISTORY Problem Relation Age of Onset - FIBROID UTERUS [OTHER] Mother - ENDOMETRIOSIS [OTHER] Mother - Hypertension Father - Stroke Maternal Grandfather - Heart Maternal Grandfather - Cancer Paternal Grandmother BREAST AND lung, coal exposure - Diabetes Paternal Grandmother - Stroke Paternal Grandfather - Lipids Paternal Grandfather - Heart Paternal Grandfather Current Outpatient prescriptions: Norgestimate-Ethinyl Estradiol (ORTHO TRI-CYCLEN, 28,) 0.18/0.215/0.25 mg-35 mcg (28) tab Take 3 tablets by mouth once daily. ibuprofen (MOTRIN) 600 mg tablet Take 1 tablet by mouth every 6 hours as needed for Pain. FOR PAIN. Allergies: ALLERGIES No Known Allergies ROS: See HPI PE: 07/01/17 0744 BP: 122/80 Pulse: 60 Resp: 16 Temp: 36.1 ?C (97 ?F) TempSrc: Left Tympanic Weight: 103.4 kg (228 lb) Gen: AANDamp;O, NAD, non-toxic appearing, Pleasant, cooperative HEENT: NT/AC, PERRLA, EOMs intact b/l, nares clear and patent b/l, pharynx without erythema, exudate or lesions. Uvula midline. EACs without erythema or debris. TMs pearly lockhart with intact landmarks b/l. Neck: supple, No cervical LAD, mild NT thyromegaly, no carotid bruits CV: RRR, normal S1 and S2, no murmurs, no gallops, no rubs, Pulses 2+ and symmetric in UE and LE b/l Lungs: normal respiratory effort, CTA b/l, no wheezing or rhonchi or rales Abd: soft, obese, NT, ND, +BS, no hepatosplenomegaly MS: mild SI joint TTP, overall normal ROM Neuro: CN II-XII intact b/l, strength 5/5 b/l UE and LE, DTRs 2/4 UE and LE, sensation intact. Skin: warm, dry, intact, No rashes or lesions on exposed skin. ASSESSMENT/PLAN: 1. Well adult exam - ICD9: V70.0, ICD10: Z00.00 (primary diagnosis) - Encouraged monthly Breast Self Exam - Follow up for annual exam in one year. - COMP METABOLIC PANEL 2. Chronic midline low back pain without sciatica - ICD9: 724.2, 338.29, ICD10: M54.5, G89.29 Chronic low back pain - Warm moist heat for 20 min three times a day - NSAIDS- see orders - Xrays- see orders - LUMBOSACRAL SUPPORT - XR LUMBAR GENERAL 3V AP/LAT/L5-S1 - CONSULT TO CHIROPRACTOR 3. Hypertriglyceridemia - ICD9: 272.1, ICD10: E78.1 - suboptimal control - Encouraged following a low fat, low cholesterol diet. - Discussed the benefits of regular aerobic exercise and weight loss. - Check fasting lipid panel and ALT in 6 months. 4. Thyromegaly - ICD9: 240.9, ICD10: E01.0 - labs as ordered - TSH BLD - T4 FREE/FREE THYROX - T3 BLD Nadeem Hawk DO To ER if develops chest pain, shortness of breath, or severe worsening of symptoms. Discussed risks, benefits, alternatives, and potential side effects of medications. Patient expressed understanding and agreed with the plan. Nadeem Hawk DO [address] [place] [address] Referring Provider: NADEEM HAWK [[id number]] Allergies As of Date: 07/01/2017 (No Known Allergies) Date Reviewed: 03/20/2017 Reviewed by: Laurent Shepard - Fully Assessed Reason for Visit: Physical [83] Primary Visit Diagnosis:Well adult exam [Z00.00] Other Visit Diagnoses:Chronic midline low back pain without sciatica [M54.5, G89.29] Hypertriglyceridemia [E78.1] Thyromegaly [E01.0] Order(s):LUMBOSACRAL SUPPORT [[id number]] Order #: [id number] XR LUMBAR GENERAL 3V AP/LAT/L5-S1 [[id number]] Order #: [id number] FUTURE COMP METABOLIC PANEL [SQCMP] Order #: [id number] FUTURE CONSULT TO CHIROPRACTOR [[id number]] Order #: [id number]: 1 TSH BLD [SQTSH] Order #: [id number] FUTURE T4 FREE/FREE THYROX [SQFT4] Order #: [id number] FUTURE T3 BLD [SQT3] Order #: [id number] FUTURE Prescriptions as of 07/01/2017 Sig: NORGESTIMATE-ETHINYL ESTRADIO* Take 3 tablets by mouth once * Problem List As Of Date 07/01/2017 Noted Resolved Well adult exam [Z00.00] INVALID FOR*07/18/2015 Bleeding in early [O20.9] INVALID FOR*10/30/2013 More... History of LEEP (loop electrosurgical excision *INVALID FOR*07/18/2015 More... GBS (group B streptococcus) UTI complicating pr*INVALID FOR*07/18/2015 Supervision of normal first [Z34.00] INVALID FOR*07/18/2015 Obesity in [O99.210] INVALID FOR*05/01/2016 More... History of LEEP (loop electrosurgical excision *INVALID FOR*05/01/2016 More... History of ovarian cyst [Z87.42] INVALID FOR*05/01/2016 More... Family history of Down syndrome [Z82.79] INVALID FOR*05/01/2016 More... More... Encounter for supervision of normal i*INVALID FOR*05/01/2016 More... Hypertriglyceridemia [E78.1] INVALID FOR* Well adult exam [Z00.00] INVALID FOR* Medications Discontinued During This Encounter ibuprofen (MOTRIN) 600 mg tablet 30 t* 1 11/30/2016 07/01/2017 Class: Print RX Route: ORAL Sig: Take 1 tablet by mouth every 6 hours as needed for Pain. FOR PAIN. Disc: Reason for discontinue is not on file. Letter Text [facility] [address] [place], [place] [address] Tawny Stoll [address] [id number] Clinic #: [id number] 07/01/2017 To whom it may concern, Tawny would benefit from a stand up desk positioning at work due to mild lumbar back pain. Call office with any questions. Nadeem Hawk DO Encounter Status:Closed by NADEEM HAWK DO on 07/01/17 LIPID PANEL, BASIC Collected: 06/25/2017 Status: F Source: [place] 8:41 AM [facility] REPOSITORY TYPE CODE TESTS RESULT OUT OF REFERENCE UNITS RANGE LAB CHOL <200 mg/dL Cholesterol High 260 Result Comment: <200 mg/dL, Desirable 200-239 mg/dL, Borderline high >239 mg/dL, High LAB TRIGLY <150 mg/dL Triglyceride 134 Result Comment: <150 mg/dL, Normal 150-199 mg/dL, Borderline high 200-499 mg/dL, High >499 mg/dL, Very high LAB HDL >39 mg/dL HDL-Cholesterol 83 Result Comment: 40-59 mg/dL, Acceptable >59 mg/dL, High: Negative risk factor for coronary heart disease <40 mg/dL, Low: Positive risk factor for coronary heart disease LAB LDL <100 mg/dL LDL-Cholesterol High 150 Result Comment: <100 mg/dL, Optimal 100-129 mg/dL, Near optimal/above optimal 130-159 mg/dL, Borderline high 160-189 mg/dL, High >189 mg/dL, Very high Secondary prevention optimal LDL Cholesterol levels are recommended to be < 70 mg/dL LAB NONHDL <130 mg/dL Non HDL High Cholesterol 177 Result Comment: <130 mg/dL, Optimal 130-159 mg/dL, Near optimal/above optimal 160-189 mg/dL, Borderline high 190-219 mg/dL, High >219 mg/dL, Very high Secondary prevention optimal non HDL Cholesterol levels are recommended to be < 100 mg/dL LAB FT hrs Fasting Time 10 LAB VLDL <30 mg/dL VLDL Cholesterol 27 LAB TCHDL <5.10 TC:HDL Ratio 3.13 LAB LDLHDL <2.54 LDL:HDL Ratio 1.81 Result Comment: Reference: 1. National Cholesterol Education Program ATP III Guideline At-A-Glance Quick Desk Reference: National Heart, Lung, and Blood [place]. National Institutes of Health. 2001: NIH Publication No. 01-3305. 2. An International Atherosclerosis Society position paper: global recommendations for the management of dyslipidemia: executive summary, Atherosclerosis. 2014: 232(2):410-413. Performed By: #### LIPB #### [facility] [address] [place] [address] CNPTOUTREACH Observed: 06/18/2017 Status: COMPLETED Source: [place] 12:00 AM [facility] Patient Outreach (INTMWH) TAWNY STOLL ([id number]) 1985 F Date Time Provider Department 06/18/17 NADEEM HAWK [facility] During your visit today, we recorded the following information about you: Allergies As of Date: 06/18/2017 (No Known Allergies) Date Reviewed: 03/20/2017 Reviewed by: Laurent Shepard - Fully Assessed Visit Diagnosis:Medication management [Z79.899] Order(s):LIPID PANEL BASIC [SQLIPB] Order #: [id number] FUTURE Prescriptions as of 06/18/2017 Sig: NORGESTIMATE-ETHINYL ESTRADIO* Take 3 tablets by mouth once * X IBUPROFEN 600 MG TABLET Take 1 tablet by mouth every * Problem List As Of Date 06/18/2017 Noted Resolved Well adult exam [Z00.00] INVALID FOR*07/18/2015 Bleeding in early [O20.9] INVALID FOR*10/30/2013 More... History of LEEP (loop electrosurgical excision *INVALID FOR*07/18/2015 More... GBS (group B streptococcus) UTI complicating pr*INVALID FOR*07/18/2015 Supervision of normal first [Z34.00] INVALID FOR*07/18/2015 Obesity in [O99.210] INVALID FOR*05/01/2016 More... History of LEEP (loop electrosurgical excision *INVALID FOR*05/01/2016 More... History of ovarian cyst [Z87.42] INVALID FOR*05/01/2016 More... Family history of Down syndrome [Z82.79] INVALID FOR*05/01/2016 More... More... Encounter for supervision of normal i*INVALID FOR*05/01/2016 More... Hypertriglyceridemia [E78.1] INVALID FOR* Well adult exam [Z00.00] INVALID FOR* Encounter Status:Closed by [employer], PRODUSER on 01/31/18 ALLERGIES ALLERGIES DATE TYPE / CODE NAME / CODE REACTION SEVERITY SOURCE 04/07/2018 Drug adhesive/[id number] REDNESS TO AREA [facility] 536156(SNOM Repository ED CT) Drug NO KNOWN [facility] Class/59393 ALLERGIES [place] 1003(SNOMED Repository CT) ENCOUNTERS ENCOUNTERS ADMIT/DISCHARGE ACCOUNT ADMITTING ENCOUNTER LOCATION SOURCE NUMBER CLASS 04/07/2018/04/07/20 [id number] Emergency Adonis [place] 18 [facility] ing:ED Repository 04/01/2018/04/01/20 [id number] Ambulatory [address] [place] Repository 09/27/2017/10/01/19 [id number] Ambulatory [address] [place] Repository 07/12/2017/07/13/19 [id number] Ambulatory [address] [place] Repository 07/12/2017/07/13/19 [id number] Ambulatory [address] [place] Repository 07/03/2017/07/05/19 [id number] Ambulatory [address] [place] Repository 07/01/2017/07/02/19 [id number] Ambulatory [address] [place] Repository 07/01/2017/07/03/19 [id number] Ambulatory [address] Repository 06/25/2017/06/26/19 [id number] Ambulatory [address] Repository PAYERS PAYERS ENCOUNTER GUARANTOR PAYER SUBSCRIBER SOURCE 04/07/2018 TAWNY S Primary TAWNY S [place] [id number] Manuela Insurance:ANTHEMPolic CONRADDOB: [facility] Number: [id number] [address]Rpj: [phone] [id number] Repository [phone] () Date:[id number] [address]GC: 04/07/2018 Secondary NOT GIVENUNK [place] Insurance:SELF PAY [facility] Number: Effective Repository Date:2018-04-07
== END 2018-04-07 02:55 | disposition home or self-care (01) ==
LOC: ED 01:19
PROVIDERS: Emergency Provider Emergency Medicine; Family Provider Student in an Organized Health Care Education/Training Program; PCP Student in an Organized Health Care Education/Training Program
DX: R10.13 Epigastric pain (principal); R19.7 Diarrhea, unspecified; R11.2 Nausea with vomiting, unspecified
CPT/HCPCS: 80053; 83690; 85025; 96361; 96374; 99285; J7030; A4216; J2405

== ENCOUNTER 2019-10-07 09:20 | Outpatient (CLI) | payer BC, SELFPAY ==
[2019-10-07 09:30] VITALS: PULSE 91; TEMP 37.1; O2SAT 99
[2019-10-07 09:32] VITALS: BP 135/72; PULSE 95
[2019-10-07 09:38] VITALS: BMI 47.6
--- NOTE | 2019-10-08 08:54 | OB.TRI.NOTE ---
- Problem List (1) Decreased movement Status: Acute (2) 35 weeks gestation of Status: Acute (3) Dichorionic diamniotic twin Status: Acute History of Present Illness Date of Service: 10/07/19 Was patient seen by the physician?: No Reason For Visit: MONITORING History of Present Illness: Pt presented to the office with decreased movement of baby B Allergies adhesive Adverse Reaction (Verified 04/07/18 00:49) REDNESS TO AREA Physical Exam Vitals: Vital Signs Temp Pulse BP Pulse Ox 98.8 F 95 135/72 H 99 10/07/19 09:30 10/07/19 09:32 10/07/19 09:32 10/07/19 09:30 NST - FHR Rate Baby A Baseline: 130 Variability:: Moderate Accelerations:: 15 x 15 Decelerations:: None NST Reactive:: Yes Uterine Activity:: Ctx's q 5-7 min - FHR Rate Baby B Baseline: 140 Variability:: Moderate Accelerations:: 15 x 15 Decelerations:: None NST Reactive:: Yes Uterine Activity:: Ctx's q 5-7 min Impression/Plan NST reactive x 2
== END 2019-10-07 10:00 | disposition home or self-care (01) ==
LOC: WPOUT 09:23 → OBT 09:24
PROVIDERS: PCP Student in an Organized Health Care Education/Training Program; Referring Provider Advanced Practice Midwife; Visit Provider Advanced Practice Midwife
DX: O36.8120 Decreased fetal movements, second trimester, not applicable or unspecified (principal); O30.022 Conjoined twin pregnancy, second trimester; Z3A.35 35 weeks gestation of pregnancy
CPT/HCPCS: 59025; 59050; 99218; G0378

== ENCOUNTER → 2019-10-21 09:05 | Outpatient (CLI) | payer BC, SELFPAY ==
--- NOTE | 2019-10-21 12:40 | HP.PCM_ITS ---
History and Physical Date of Admission: 10/21/19 HPI: The patient is a 34 year old female presenting for pre-operative visit. She is scheduled for??and bilateral salpingectomy, for?transvers/breech twins, sterilization request on?10/28/2019. ??Procedure discussed along with risks, benefits and complications. ?Other alternatives discussed for management. Consent form signed??Yes.? PAST MEDICAL HISTORY PAST MEDICAL HISTORY Diagnosis Date ? Abnormal Pap smear ? ? Abnormal Pap smear of cervix ? ? Chlamydia 2009 ? Hypercholesteremia 05/2014 ? Ovarian cyst ? ? depression ? ? ? PAST SURGICAL HISTORY PAST SURGICAL HISTORY Procedure Laterality Date ? COLP CERVIX UP VAG LEEP BX ? 09/08/12 ? EXTRACTION, ERUPTED TOOTH OR EXPOSED ROOT (ELEVATION AND/OR FORCEPS REMOVAL) ? 12/23/2014 ? no difficulty with anesthesia ? L'SCOPE CAVITY/CYST SINGLE/MULTIPLE ? 12/14/2016 ? Laparascopy with lysis of adhesions of bowel to anterior abdominal wall and mauro. ovarian cystotomy ? PAST SURGICAL HISTORY OF ? ? ? Mole removed ? ? CURRENT MEDICATIONS Current Outpatient Medications Medication Sig Dispense Refill ? chlorhexidine (ANTISEPTIC SKIN CLNSR,CHLORHE,) 4 % external liquid Apply to affected area as directed for 14 days. bid x 2 weeks 100 mL 1 ? nystatin (MYCOSTATIN) powder Apply 1 application to affected area three times daily. 1 Bottle 1 ? famotidine (PEPCID) 20 mg tablet Take 1 tablet by mouth twice daily. 60 tablet 1 ? Lebcmrjh-Ag-Pqw-Fe-FA ( VITAMIN) tab Take 1 tablet by mouth. ? ? ? No current facility-administered medications for this visit.? ? ALLERGIES:?Patient has no known allergies. ? PERSONAL HISTORY:? SOCIAL HISTORY Social History ? Tobacco Use ? Smoking status: Never Smoker ? Smokeless tobacco: Never Used Substance Use Topics ? Alcohol use: No ? ? Frequency: Never ? ? Drinks per session: 1 or 2 ? ? Binge frequency: Never ? Drug use: No ? FAMILY HISTORY:? FAMILY HISTORY FAMILY HISTORY Problem Relation Age of Onset ? other (FIBROID UTERUS) Mother ? ? other (ENDOMETRIOSIS) Mother ? ? Hypertension Father ? ? No Known Problems Sister ? ? No Known Problems Brother ? ? Diabetes Maternal Grandmother ? ? Stroke Maternal Grandfather ? ? Heart Maternal Grandfather ? ? Cancer Paternal Grandmother ?BREAST AND lung, coal exposure ? Diabetes Paternal Grandmother ? ? Stroke Paternal Grandfather ? ? Lipids Paternal Grandfather ? ? Heart Paternal Grandfather ? ? other (hernia) Daughter ? ? No Known Problems Son ? ? REVIEW OF SYMPTOMS: GENERAL: denies fevers or chills ENDOCRINOLOGY: has not been on steroids Cardiology : denies palpitations or chest pain Respiratory: denies SOB or cough Hematology: denies history of prolonged bleeding or easy bruising or VTE Allergy: Denies history of personal or family history of allergy to anesthesia ? ? PHYSICAL EXAMINATION: ? VITALS:?Blood pressure 154/88, height 5' 2.75 (1.594 m), weight 272 lb (123.4 kg), last menstrual period 02/04/2019. ? GENERAL:??The patient is well nourished, well hydrated in no acute distress. ?, The patient is oriented to time, place, and person. NECK:?Supple. No lynphadenopathy, normal thyroid, no thyromegaly. LUNGS:?Clear to auscultation bilaterally. no wheezes, rhonchi or rales HEART:?Regular rate and rhythm, Normal heart sounds and No murmurs or gallops abd- soft, nontender, gravid, abscess on lower abdomen ? IMPRESSION:?on 10/29/2019 ?@ 37 w 0d on?with di/di twins, chronic HTN vs gest HTN,??breech presentation, sterilization request ? PLAN:???The risks/benefits/alternatives and personal involved for the p lanned?c/s and bilateral salpingectomy?were reviewed with the patient. Her questions were answered to her satisfaction and she desires to proceed. ?Consent was signed. ?I reviewed with her postop instructions and expectations. ?Discussed case w/ MFM who recommends delivery. ? ? I have reviewed and updated past medical and surgical history, medications and allergies?
== END ==
PROVIDERS: PCP Student in an Organized Health Care Education/Training Program; Referring Provider Obstetrics & Gynecology; Visit Provider Obstetrics & Gynecology
DX: Z11.59 Encounter for screening for other viral diseases (principal)
CPT/HCPCS: 87635; C9803; G2023; U0003

== ENCOUNTER 2019-10-21 15:57 | Inpatient (IN) | payer BC, SELFPAY ==
[2019-10-21] VITALS (31 sets, daily range): BP systolic 109–135; BP diastolic 58–85; PULSE 65–104; RESP 16–20; TEMP 36.1–36.9; O2SAT 86–100; BMI 48.2
[2019-10-21] MEDS: Lactated Ringers 1,000 ML 999 ML IV (16:25)
[2019-10-21 16:48] LABS: Absolute Lymphocyte Count 1.52 X10^3/uL (0.83-4.51); Absolute Neutrophil Count 7.7 X10^3/uL (2.0-7.7); Basophil# 0.01 X10^3/uL; Basophil% 0.1 % (0-1); Eosinophil# 0.08 X10^3/uL; Eosinophils% 0.8 % (0-5); Hematocrit 36.4 % (37-47); Hemoglobin 11.8 g/dL (12.0-15.0); Lymphocyte # 1.52 X10^3/ul (4.0); Lymphocyte % 15.5 % (19-41); Mean Corp Hgb Conc 32.4 g/dL (32-36); Mean Corpuscular Hgb 28.6 pg (27.0-32.0); Mean Corpuscular Volume 88.1 fL (81-99); Mean Platelet Vol. 10.3 fl (6.2-12.0); Monocyte# 0.45 X10^3/uL; Monocyte% 4.6 % (0-10); NRBC Flagged by Analyzer 0 % (0-5); Neutrophil # 7.68 X10^3/uL (2.7-7.7); Neutrophil % 78.3 % (47-70); Platelet Count 255 K/mm3 (150-450); RBC Distribution Width CV 14.2 % (11.6-14.6); RBC Distribution Width SD 45.8 fl (35.1-43.9); Red Blood Count 4.13 M/mm3 (4.2-5.4); White Blood Count 9.8 K/mm3 (4.4-11.0)
--- NOTE | 2019-10-21 16:49 | PCM.HP.BLA ---
History and Physical Date of Admission: 10/21/19 Date of Admission: 10/21/19 HPI: The patient is a 34 year old female presenting for pre-operative visit. She is scheduled for??and bilateral salpingectomy, for?transvers/breech twins, sterilization request on?10/28/2019. ??Procedure discussed along with risks, benefits and complications. ?Other alternatives discussed for management. Consent form signed??Yes.? PAST MEDICAL HISTORY PAST MEDICAL HISTORY Diagnosis Date ? Abnormal Pap smear ? ? Abnormal Pap smear of cervix ? ? Chlamydia 2008 ? Hypercholesteremia 05/2014 ? Ovarian cyst ? ? depression ? ? ? PAST SURGICAL HISTORY PAST SURGICAL HISTORY Procedure Laterality Date ? COLP CERVIX UP VAG LEEP BX ? 09/08/12 ? EXTRACTION, ERUPTED TOOTH OR EXPOSED ROOT (ELEVATION AND/OR FORCEPS REMOVAL) ? 12/23/2014 ? no difficulty with anesthesia ? L'SCOPE CAVITY/CYST SINGLE/MULTIPLE ? 12/14/2016 ? Laparascopy with lysis of adhesions of bowel to anterior abdominal wall and mauro. ovarian cystotomy ? PAST SURGICAL HISTORY OF ? ? ? Mole removed ? ? CURRENT MEDICATIONS Current Outpatient Medications Medication Sig Dispense Refill ? chlorhexidine (ANTISEPTIC SKIN CLNSR,CHLORHE,) 4 % external liquid Apply to affected area as directed for 14 days. bid x 2 weeks 100 mL 1 ? nystatin (MYCOSTATIN) powder Apply 1 application to affected area three times daily. 1 Bottle 1 ? famotidine (PEPCID) 20 mg tablet Take 1 tablet by mouth twice daily. 60 tablet 1 ? Fvvcqjml-Gm-Beu-Fe-FA ( VITAMIN) tab Take 1 tablet by mouth. ? ? ? No current facility-administered medications for this visit.? ? ALLERGIES:?Patient has no known allergies. ? PERSONAL HISTORY:? SOCIAL HISTORY Social History ? Tobacco Use ? Smoking status: Never Smoker ? Smokeless tobacco: Never Used Substance Use Topics ? Alcohol use: No ? ? Frequency: Never ? ? Drinks per session: 1 or 2 ? ? Binge frequency: Never ? Drug use: No ? FAMILY HISTORY:? FAMILY HISTORY FAMILY HISTORY Problem Relation Age of Onset ? other (FIBROID UTERUS) Mother ? ? other (ENDOMETRIOSIS) Mother ? ? Hypertension Father ? ? No Known Problems Sister ? ? No Known Problems Brother ? ? Diabetes Maternal Grandmother ? ? Stroke Maternal Grandfather ? ? Heart Maternal Grandfather ? ? Cancer Paternal Grandmother ?BREAST AND lung, coal exposure ? Diabetes Paternal Grandmother ? ? Stroke Paternal Grandfather ? ? Lipids Paternal Grandfather ? ? Heart Paternal Grandfather ? ? other (hernia) Daughter ? ? No Known Problems Son ? ? REVIEW OF SYMPTOMS: GENERAL: denies fevers or chills ENDOCRINOLOGY: has not been on steroids Cardiology : denies palpitations or chest pain Respiratory: denies SOB or cough Hematology: denies history of prolonged bleeding or easy bruising or VTE Allergy: Denies history of personal or family history of allergy to anesthesia ? ? PHYSICAL EXAMINATION: ? VITALS:?Blood pressure 154/88, height 5' 2.75 (1.594 m), weight 272 lb (123.4 kg), last menstrual period 02/04/2019. ? GENERAL:??The patient is well nourished, well hydrated in no acute distress. ?, The patient is oriented to time, place, and person. NECK:?Supple. No lynphadenopathy, normal thyroid, no thyromegaly. LUNGS:?Clear to auscultation bilaterally. no wheezes, rhonchi or rales HEART:?Regular rate and rhythm, Normal heart sounds and No murmurs or gallops abd- soft, nontender, gravid, abscess on lower abdomen ? IMPRESSION:?on 10/29/2019 ?@ 37 w 0d on?with di/di twins, chronic HTN vs gest HTN,??breech presentation, sterilization request ? PLAN:???The risks/benefits/alternatives and personal involved for the planned?c/s and bilateral salpingectomy?were reviewed with the patient. Her questions were answered to her satisfaction and she desires to proceed. ?Consent was signed. ?I reviewed with her postop instructions and expectations. ?Discussed case w/ MFM who recommends delivery. ? ? I have reviewed and updated past medical and surgical history, medications and allergies?
[2019-10-21] MEDS: Acetaminophen 500 MG Tablet 1000 MG PO ×2 (17:27→23:19)
[2019-10-21] MEDS: Lactated Ringers 1,000 ML 150 ML IV (17:33)
--- NOTE | 2019-10-21 17:58 | NURSING ---
OP site placed to lower mid pannus culture site per Dr. Tang request. Site red, non draining at this time.
[2019-10-21] MEDS: Sodium Citrate/Citric Acid 30 ML UDC PO (19:01)
--- NOTE | 2019-10-21 20:25 | OP.PCM_ITS ---
Delivery Classification: Scheduled Final JIMMY: 11/11/19 Final JIMMY Source: US <20 weeks Gestational age: 37 Weeks and 0 Days senior communications engineer: Stephanie Farley Type of Anesthesia:: Spinal Special Medications: none Implants Used: none Date of Procedure: 10/21/19 Pre-Operative Diagnosis: 37 week di/di twins, chronic hypertension, transverse presenting fetus Post-Operative Diagnosis: same Indications for : Desires elective sterilization, Breech, - - twins Description of Procedure: The patient was taken to the operating room. She was prepped and draped in the dorsal supine position with a leftward tilt. A Pfannenstiel skin incision was made approximately 2 cm above the symphysis pubis and carried through to underlying layer fascia with the scalpel. The fascia was incised incised in the midline and extended laterally with the Pérez scissors. The fascia was dissected off the rectus muscles with blunt and sharp dissection. The rectus muscles were in the midline and the peritoneum was entered bluntly. The peritoneal incision was stretched and the bladder blade was placed. The uterine incision was made in a low transverse fashion with the scalpel and extended superiorly and inferiorly with blunt dissection. The amniotic membranes were ruptured bluntly and clear amniotic fluid returned. Baby A was grasped by the breech and brought to the incision. The legs were swept out individually. The baby was turned to back up and the head was delivered in the flexed position with minimal fundal pressure without difficulty. The was stimulated and after approximately 30 seconds the cord was clamped and cut and the was handed off. Baby B was then palpated and found to be breech. The amniotic membranes for baby B were ruptured and clear fluid returned. The breech was brought out to the incision and again the legs were swept out individually and the fetus was brought out to the head. Baby was turned to back up and the head was delivered in a flexed position without difficulty and less than 15 seconds. Mouth and nares were bulb suctioned as the cord was clamped and cut after approximately 30 seconds . The infant was handed off to the waiting nursing staff. The placenta was delivered with fundal massage and gentle traction in the standard fashion. The uterus was exteriorized and cleared of all clots and debris. The cervix was dilated with a ring forcep. The uterine incision was closed with #1 Vicryl in a running locked fashion. A second layer of the same suture was used in an imbricating fashion. The incision was examined and was found to be hemostatic. The right fallopian tube was grasped with Tessa clamps and followed out to the fimbriated end. The LigaSure was then used to clamp, seal, and transect the antimesenteric portions of the tube to the cornual insertion. The cornual insertion was clamped across sealed and transected with the LigaSure device and the pedicles were hemostatic. The same procedure was performed on the contralateral side. The pedicles were hemostatic. The uterus was placed back into the peritoneal cavity and hemostasis was again confirmed. Kehinde was placed over the uterine incision. The rectus muscles were examined and any bleeding was Bovie cauterized. The parietal peritoneum and rectus muscles were closed en bloc with an 0 Vicryl running suture. Kehinde was placed over the rectus muscles. The surgical teams outer gloves were then changed. The rectus fascia was examined and any bleeding was Bovie cauterized and the rectus fascia was closed with 0 PDS suture in a running standard fashion. The subcutaneous tissue was examining and any bleeding was Bovie cauterized. Kehinde was placed in the subcutaneous layer. The subcutaneous tissue was reapproximated with 3-0 Vicryl suture. The skin was closed in a subcuticular fashion with Monocryl suture. Performed the entire procedure with assistance. All sponge, lap, and needle counts were correct. The patient was taken to her room for recovery in a stable condition. Amniotic Membrane Rupture Type: Artificial Amniotic Fluid Description: Clear Placenta Disposition: Sent to Pathology Specimen(s) sent to pathology: bilateral tubes/placenta Drain: Wallace to straight drain Fluids Replaced: 700cc Cord Entanglement: None Cord Vessel Description: 3 Vessels Esitmated Blood Loss (ml): 1000 Infant Gender: Female Delayed cord clamping: Yes Antibiotic Given: - - vancomycin due to abdominal wall abscesses Complications: None - Admit VTE Documentation VTE Present on Admission: No VTE Mechan Device Prophylaxis: SCD's VTE Pharm Prophylaxis ordered?: No Baby B - Information Amniotic Membrane Rupture Type: Artificial Presentation: Complete Breech - Operative Information Cord Entanglement: None Cord Vessel Description: 3 Vessels B gender: Female
[2019-10-21] MEDS: Oxytocin 30 units/NS 500 ml 30 UNITS/500 ML IV.SOLN 167 UNITS IV (20:40)
--- NOTE | 2019-10-21 20:47 | PLAC_PTH ---
PATIENT: POLI STOLL LOC: WP U#:[id number] AGE/SX: 34/F ROOM: WP021 RE10/21/[address]: Dr. Briseyda Tang MD : 1985 BED: 1 DIS: 10/24/2019 SPEC #: [id number] RECD: 10/21/19 22:29 STATUS: ANILA NASEEM #: [id number] GIOVANNA: 10/21/19 20:[address]: Briseyda Tang DEPT: SURGICAL PATHOLOGY RECD BY: Omi Lewis ENTERED: 10/22/19 09:17 SP TYPE: PLACENTA OTHR DR: Dr. Nadeem Delgado, DO Tissues: A - Placenta, NOS B - Fallopian tube Procedures: Surgery Specimen Level II Surgery Specimen Level V HEADER OPERATION: Primary section; tubal ligation PRE-OP DIAGNOSIS: Twins TISSUE SUBMITTED: A - Placenta, B - Fallopian tubes MICROSCOPIC DIAGNOSIS A. Dichorionic diamniotic twin placenta (713 gm): Placenta 1: Peripheral membranes - no pathologic change. Umbilical cord - trivascular with no inflammation. Placental disc - intervillous congestion. Placenta 2: Peripheral membranes - no pathologic change. Umbilical cord - trivascular with no inflammation. Placental disc - mild Swapna-Yasmani change, intravillous congestion and intervillous congestion. B. Right and left fallopian tubes, bilateral salpingectomies: Two complete segments of fallopian tubes with no pathologic change. AM:letha 10/27/19 MICROSCOPIC DESCRIPTION Slides are reviewed. GROSS DESCRIPTION A - SPECIMEN: TWIN PLACENTA / CLINICAL INFORMATION: A. Weight: A - 2.36 kg; B - 2.39 kg B. Gestational Age: 37 weeks C. Sex: A - Female, B - Female The specimen consists of twin placenta consisting of two separate placental discs, two umbilical cords and two amniotic sacs. Placenta 1 and 2 are not designated. They are assigned as placenta 1 and placenta 2 arbitrarily.. PLACENTAL WEIGHT (POST FIXATION): The body of the placental discs together weighs 713 gm PLACENTAL DISC(s) DIMENSIONS: 26 x 14 x 3-4 cm in thickness PLACENTAL SHAPE: Usual ovoid PLACENTAL WEIGHT FOR GESTATIONAL AGE: Within 10-99th percentile. PLACENTA 1: MEMBRANES - Present A. Insertion: Marginal B. Site of rupture from edge: 8 cm from edge of placental disc C. Color of membrane: Ann-rodriguez D. Abnormalities: None UMBILICAL CORD - Present A. Color: Ann-rodriguez B. Insertion: Marginal C. Length: 30 cm D. Diameter: 0.8 to 1.2 cm E. Number of vessels: Three F. Abnormalities: None PLACENTA 2: MEMBRANES - Present A. Insertion: Marginal B. Site of rupture from edge: At edge of placental disc C. Color of membrane: Ann-rodriguez D. Abnormalities: None UMBILICAL CORD - Present A. Color: Ann-rodriguez B. Insertion: Central C. Length: 34 cm D. Diameter: 1.5 cm E. Number of vessels: Three F. Abnormalities: None PLACENTAL DISC - Present A. Color of surface: Ann-rodriguez B. surface abnormalities: None C. Maternal cotyledons: Intact with minimal tears D. Attached retro placental clot: No clot E. Cut surface: Dark red and spongy F. Lesions: None G. Separate clot: Absent SECTIONS SUBMITTED: 11 cassettes 1 - Dividing membranous septum 2-6 - placenta #1 (2 - membrane roll, 3 - umbilical cord, end inked black, 4-6 - body of the placenta toward placenta A including maternal and surfaces) 7-11 - placenta #2 (7 - membrane roll, 8 - umbilical cord, end inked black, 9-11 - body of the placenta disc including maternal and surfaces). ALBA:letha 10/26/19 TC: B - Received in fixative is one container labeled with the patient's name and designated bilateral fallopian tubes, right side has suture. The specimen consists of bilateral fallopian tubes including fimbrial ends. The right fallopian tube measures 6.5 cm in length and 0.7 cm in diameter and the left fallopian tube measures 7 cm in length and 0.7 cm in diameter. Sections reveal unremarkable cut surfaces. Panel Flow Machine Operator sections are submitted in two cassettes as follows: 1 - right fallopian tube, 2 - left fallopian tube. / Kervin 10/22/19 TC:5 CPT:, 87355 x2, 12816 x2
[2019-10-21 22:33] LABS: Pathology Specimen OB SEE PATHOLOGY REPORT
[2019-10-21] MEDS: Lactated Ringers 1,000 ML 100 ML IV (23:40)
[2019-10-22] VITALS (22 sets, daily range): BP systolic 97–126; BP diastolic 58–72; PULSE 67–95; RESP 12–18; TEMP 36.3–36.9; O2SAT 95–100
[2019-10-22] MEDS: Ketorolac 30 MG/ML Syringe IV ×4 (02:49→20:37)
[2019-10-22] MEDS: 0.9% Saline Lock 10 ML Syringe IV ×4 (02:50→20:37)
[2019-10-22] MEDS: Acetaminophen 500 MG Tablet 1000 MG PO ×4 (04:33→23:23)
[2019-10-22 05:16] LABS: Hematocrit 29.6 % (37-47); Hemoglobin 9.3 g/dL (12.0-15.0); Mean Corp Hgb Conc 31.4 g/dL (32-36); Mean Corpuscular Hgb 28.2 pg (27.0-32.0); Mean Corpuscular Volume 89.7 fL (81-99); Platelet Count 179 K/mm3 (150-450); RBC Distribution Width CV 14.6 % (11.6-14.6); RBC Distribution Width SD 47.2 fl (35.1-43.9); White Blood Count 10.1 K/mm3 (4.4-11.0)
--- NOTE | 2019-10-22 09:02 | PCM.PN.OB ---
Subjective: pain well controlled, average lochia. No N/V. Denies Khan or visual changes. - Physical Exam Vitals/I&O's: Vital Signs Temp Pulse Resp BP Pulse Ox 98.5 F 70 14 107/59 L 98 10/22/19 08:10 10/22/19 08:10 10/22/19 08:10 10/22/19 08:10 10/22/19 08:10 Oxygen Delivery Method Room Air Weight: 123.5 kg Body Mass Index (BMI) 48.2 Intake and Output for Last 24 Hours 10/20/19 10/21/19 10/22/19 23:59 23:59 23:59 Intake Total 2982.5 / 2982.5 1248.33 / 1248.33 Output Total 135 / 135 525 / 525 Balance 2847.5 / 2847.5 723.33 / 723.33 General: Alert, Cooperative, No apparent distress Abdomen: Soft, Non-Distended, Obese, Tender - appropriately Extremities: Edema - 2+ Skin: Incision - bandage is clean dry and intact Laboratory Results 10/21/19 16:25: WBC 9.8, RBC 4.13 L, Hgb 11.8 L, Hct 36.4 L, MCV 88.1, MCH 28.6, MCHC 32.4, RDW Std Deviation 45.8 H, RDW Coeff of Karri 14.2, Plt Count 255, MPV 10.3, Immature Gran % (Auto) 0.700, Neut % (Auto) 78.3 H, Lymph % (Auto) 15.5 L, [place] % (Auto) 4.6, Eos % (Auto) 0.8, Baso % (Auto) 0.1, Absolute Neuts (auto) 7.7, Absolute Lymphs (auto) 1.52, Nucleated RBC % 0 10/21/19 16:25: Blood Type A POSITIVE, Antibody Screen NEGATIVE 10/22/19 04:47: WBC 10.1, RBC 3.30 L, Hgb 9.3 L, Hct 29.6 L, MCV 89.7, MCH 28.2, MCHC 31.4 L, RDW Std Deviation 47.2 H, RDW Coeff of Karri 14.6, Plt Count 179, MPV 10.0 Current Medications Acetaminophen (Tylenol) 1,000 mg PO Q6H RADHA Last Admin: 10/22/19 04:33 Dose: 1,000 mg Documented by: Bisacodyl (Dulcolax) 10 mg RECTAL UD PRN PRN Reason: If no BM Enoxaparin Sodium (Lovenox) 40 mg SC DAILY [facility] Hydrocortisone (Hytone) 1 applic TOPICAL TID PRN PRN; Protocol PRN Reason: Discomfort Naloxone HCl 4 mg/ Dextrose 504 mls @ 0 mls/hr IV .Q0M PRN; Protocol PRN Reason: Respiratory depression Ketorolac Tromethamine (Toradol (Bkc)) 30 mg IV Q6H [facility] Stop: 10/22/19 20:01 Last Admin: 10/22/19 08:12 Dose: 30 mg Documented by: Methylergonovine Maleate (Methergine) 0.2 mg IM X1 PRN PRN Reason: Uterine Atony Naloxone HCl (Narcan) 0.02 mg IV Q1M PRN PRN Reason: RR <10 and pt unresponsive Naproxen (Naprosyn) 500 mg PO Q8 [facility] Last Admin: 10/22/19 04:20 Dose: Not Given Documented by: Ondansetron HCl (Zofran) 4 mg IV Q4H PRN PRN PRN Reason: Nausea Oxycodone HCl (Oxyir) 5 - 10 mg PO Q4H PRN PRN PRN Reason: Pain Score 4-10/10 Prochlorperazine Edisylate (Compazine Iv) 10 mg IV Q6H PRN PRN PRN Reason: NAUSEA Senna/Docusate Sodium (Senokot-S, Jacqueline-Colace) 0 tablet PO DAILY [facility] Simethicone (Mylicon) 80 mg PO PCHS PRN PRN Reason: Indigestion/stomach pain Sodium Chloride () 5 - 15 ml IV UD PRN PRN Reason: SALINE FLUSH Last Admin: 10/22/19 08:13 Dose: 10 ml Documented by: Medical Necessity - Tobacco Use Smoking Status: Never smoker Assessment/Plan All Active Problems Decreased movement (Acute) 35 weeks gestation of (Acute) Dichorionic diamniotic twin (Acute) POD#1 s/p primary c/s and bilateral salpingectomy doing well neonates doing well routine care BP stable, suspected chronic HTN, 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
[2019-10-22] MEDS: Enoxaparin 40 MG/0.4 ML Syringe SC (10:26)
[2019-10-22] MEDS: Senna/Docusate Sodium 1 Tablet PO (11:54)
[2019-10-23] VITALS (7 sets, daily range): BP systolic 128–138; BP diastolic 65–80; PULSE 76–87; RESP 16; TEMP 36.4–37.1; O2SAT 98–99
[2019-10-23] MEDS: Naproxen 250 MG Tablet 500 MG PO ×3 (01:58→18:57)
[2019-10-23] MEDS: Acetaminophen 500 MG Tablet 1000 MG PO ×4 (05:29→23:40)
--- NOTE | 2019-10-23 10:16 | DCINST_ITS ---
Discharge Diet: No Restrictions Discharge Activity: May Not Drive - for 2 weeks or while taking narcotic pain meds., May Shower, May Take a Tub Bath - in 7 days. May resume sexual activity in: 4-6 weeks Weight Bearing Status: Full weight bearing Lifting Restrictions: 20 pounds Additional Activity Instructions:: Nothing in the vagina for 4-6 weeks. You may return to work/school in 6 weeks. Call your doctor if your incision/area has: Continuous Slow Oozing, Sudden Increased Bleeding, Increased Pain/ Swelling, Increased Redness, Foul Smelling Discharge Call your doctor if you observe: Fever of 101 or Higher Suture Line Care: Avoid Pulling/Pushing, Avoid Pinching/Bending Cleanse incision/area with: Keep Dressing Clean & Dry - remove 7 days after surgery Additional Instructions: If you experience any of the following, contact your healthcare provider. * Bleeding that soaks a pad every hour for 2 hours * Fever 100.4 or higher * Unrelieved incision or abdominal pain * Swelling, redness, discharge or bleeding from your incision or episiotomy site * Your incision begins to separate * Problems urinating (including inability to urinate or burning while urinating). * Visual changes * Severe headache * Flu-like symptoms * Pain or redness in one of both of your breasts * Pain, warmth, tenderness or swelling in your legs, especially the calf area * Frequent nausea and vomiting * Symptoms of depression or anxiety If you experience any of the following, call 911 or go to the nearest Emergency Room. * Chest pain * Problems breathing * Seizure activity * Partial or complete paralysis of a body part, slurred speech, weakness or drooping of the face, or a sudden inability to walk or hold your balance Allergies/Adverse Reactions: Allergies adhesive Adverse Reaction (Verified 10/21/19 17:14) REDNESS TO AREA Medications to take at Discharge Prenatabs FA 1 tab PO DAILY 10/07/19 Follow-Up: Call to make an appointment with your doctor for an incision check in 1-2 weeks. You will also need a 6 week post- follow up appointment. Test results from this visit will be discussed in further detail at your follow- up appointment, if applicable. Please Follow Up With: Briseyda Tang MD Primary Care Physician: Nadeem Delgado DO [Primary Care Provider] -
--- NOTE | 2019-10-23 10:16 | PCM.PN.OB ---
Subjective: Doing well per patient and nursing staff. Ambulating and taking PO without difficulty. Voiding and passing flatus. Had bowel movement. Pain controlled. tandum and supplementing with formula. Denies any increased pain, heavy bleeding, SOB, chest pain or leg pain. Planning D/C home tomorrow. - Physical Exam Vitals/I&O's: Vital Signs Temp Pulse Resp BP Pulse Ox 98.3 F 87 16 138/80 H 98 10/23/19 08:05 10/23/19 08:08 10/23/19 08:05 10/23/19 08:08 10/23/19 08:08 Oxygen Delivery Method Room Air Weight: 272 lb 4.334 oz Body Mass Index (BMI) 48.2 Intake and Output for Last 24 Hours 10/21/19 10/22/19 10/23/19 23:59 23:59 23:59 Intake Total 2982.5 / 2982.5 1248.33 / 1248.33 Output Total 135 / 135 925 / 925 Balance 2847.5 / 2847.5 323.33 / 323.33 General: Alert, Oriented x3, Cooperative HEENT: Atraumatic, Normocephalic Neck: Trachea Midline Lungs: Clear to auscultation, Normal air movement, No rhonchi, No wheeze Cardiovascular: Regular rate, Regular Rhythm, No murmurs Abdomen: Bowel Sounds Present, Soft - Fundus firm 2 below U, dressing dry and intact. Extremities: Edema - +1 BLE, non pitting Neurological: Deep Tendon Reflexes 2+/4 and Symmetrical Psych/Mental Status: Normal Affect, Appropriate Current Medications Acetaminophen (Tylenol) 1,000 mg PO Q6H [facility] Last Admin: 10/23/19 05:29 Dose: 1,000 mg Documented by: Bisacodyl (Dulcolax) 10 mg RECTAL UD PRN PRN Reason: If no BM Enoxaparin Sodium (Lovenox) 40 mg SC DAILY [facility] Last Admin: 10/22/19 10:26 Dose: 40 mg Documented by: Hydrocortisone (Hytone) 1 applic TOPICAL TID PRN PRN; Protocol PRN Reason: Discomfort Naloxone HCl 4 mg/ Dextrose 504 mls @ 0 mls/hr IV .Q0M PRN; Protocol PRN Reason: Respiratory depression Methylergonovine Maleate (Methergine) 0.2 mg IM X1 PRN PRN Reason: Uterine Atony Naloxone HCl (Narcan) 0.02 mg IV Q1M PRN PRN Reason: RR <10 and pt unresponsive Naproxen (Naprosyn) 500 mg PO Q8H [facility] Last Admin: 10/23/19 01:58 Dose: 500 mg Documented by: Ondansetron HCl (Zofran) 4 mg IV Q4H PRN PRN PRN Reason: Nausea Oxycodone HCl (Oxyir) 5 - 10 mg PO Q4H PRN PRN PRN Reason: Pain Score 4-10/10 Prochlorperazine Edisylate (Compazine Iv) 10 mg IV Q6H PRN PRN PRN Reason: NAUSEA Senna/Docusate Sodium (Senokot-S, Jacqueline-Colace) 0 tablet PO DAILY [facility] Last Admin: 10/22/19 11:54 Dose: 1 tablet Documented by: Simethicone (Mylicon) 80 mg PO PCHS PRN PRN Reason: Indigestion/stomach pain Sodium Chloride () 5 - 15 ml IV UD PRN PRN Reason: SALINE FLUSH Last Admin: 10/22/19 20:37 Dose: 10 ml Documented by: Medical Necessity - Tobacco Use Smoking Status: Never smoker Assessment/Plan All Active Problems Decreased movement (Acute) 35 weeks gestation of (Acute) Dichorionic diamniotic twin (Acute) A:POD #2 Primary Section due to breech twins with bilateral salpingectomy P: 1) Routine postop and care 2) Hgb stable, asymptomatic 3) DVT prophylaxis with Lovenox 4) BP stable 5) Pain controlled 6) Planning D/C home tomorrow
--- NOTE | 2019-10-23 10:17 | DS.PCM_ITS ---
Discharge Date and Diagnosis Date of Admission: 10/21/19 Hospital Course and Treatment Summary of Care Provided: The patient is a 34 year old F Primary low transverse section via Pfannenstiel skin incision with bilateral salpingectomy for sterilization. Normal course. Discharge home on day 3 postoperative. - Physical Exam Vitals/I&O's: Vital Signs Temp Pulse Resp BP Pulse Ox 98.3 F 87 16 138/80 H 98 10/23/19 08:05 10/23/19 08:08 10/23/19 08:05 10/23/19 08:08 10/23/19 08:08 Oxygen Delivery Method Room Air Weight: 272 lb 4.334 oz Body Mass Index (BMI) 48.2 Intake and Output for Last 24 Hours 10/21/19 10/22/19 10/23/19 23:59 23:59 23:59 Intake Total 2982.5 / 2982.5 1248.33 / 1248.33 Output Total 135 / 135 925 / 925 Balance 2847.5 / 2847.5 323.33 / 323.33 Current Medications Acetaminophen (Tylenol) 1,000 mg PO Q6H [facility] Last Admin: 10/23/19 05:29 Dose: 1,000 mg Documented by: Bisacodyl (Dulcolax) 10 mg RECTAL UD PRN PRN Reason: If no BM Enoxaparin Sodium (Lovenox) 40 mg SC DAILY [facility] Last Admin: 10/22/19 10:26 Dose: 40 mg Documented by: Hydrocortisone (Hytone) 1 applic TOPICAL TID PRN PRN; Protocol PRN Reason: Discomfort Naloxone HCl 4 mg/ Dextrose 504 mls @ 0 mls/hr IV .Q0M PRN; Protocol PRN Reason: Respiratory depression Methylergonovine Maleate (Methergine) 0.2 mg IM X1 PRN PRN Reason: Uterine Atony Naloxone HCl (Narcan) 0.02 mg IV Q1M PRN PRN Reason: RR <10 and pt unresponsive Naproxen (Naprosyn) 500 mg PO Q8H [facility] Last Admin: 10/23/19 01:58 Dose: 500 mg Documented by: Ondansetron HCl (Zofran) 4 mg IV Q4H PRN PRN PRN Reason: Nausea Oxycodone HCl (Oxyir) 5 - 10 mg PO Q4H PRN PRN PRN Reason: Pain Score 4-10/10 Prochlorperazine Edisylate (Compazine Iv) 10 mg IV Q6H PRN PRN PRN Reason: NAUSEA Senna/Docusate Sodium (Senokot-S, Jacqueline-Colace) 0 tablet PO DAILY [facility] Last Admin: 10/22/19 11:54 Dose: 1 tablet Documented by: Simethicone (Mylicon) 80 mg PO PCHS PRN PRN Reason: Indigestion/stomach pain Sodium Chloride () 5 - 15 ml IV UD PRN PRN Reason: SALINE FLUSH Last Admin: 10/22/19 20:37 Dose: 10 ml Documented by: Discharge Diet: No Restrictions Discharge Activity: May Not Drive - for 2 weeks or while taking narcotic pain meds., May Shower, May Take a Tub Bath - in 7 days. May resume sexual activity in: 4-6 weeks Weight Bearing Status: Full weight bearing Additional Activity Instructions:: Nothing in the vagina for 4-6 weeks. You may return to work/school in 6 weeks. Call your doctor if your incision/area has: Continuous Slow Oozing, Sudden Increased Bleeding, Increased Pain/ Swelling, Increased Redness, Foul Smelling D ischarge Call your doctor if you observe: Fever of 101 or Higher Suture Line Care: Avoid Pulling/Pushing, Avoid Pinching/Bending Cleanse incision/area with: Keep Dressing Clean & Dry - remove 7 days after surgery Home Medications: Medications to take at Discharge Prenatabs FA 1 tab PO DAILY 10/07/19 Ferrous Sulfate 325 mg PO DAILY #30 tab 10/24/19 Oxycodone [Oxyir] 5 - 10 mg PO Q4H PRN PRN 7 Days #20 tab 10/24/19 Senna/Docusate Sodium [Senokot-S] 1 tab PO DAILY #30 tab 10/24/19 Following Prescrptions Were Given to Patient: Ferrous Sulfate 325 mg PO DAILY #30 tab Transmission Status: Pending to [facility] Oxycodone [Oxyir] 5 - 10 mg PO Q4H PRN PRN 7 Days #20 tab PRN Reason: Pain Score 4-10/10 Transmission Status: Received by [facility] Senna/Docusate Sodium [Senokot-S] 1 tab PO DAILY #30 tab Transmission Status: Sent to [facility] Primary Care Physician: Nadeem Delgado DO [Primary Care Provider] - Please Follow Up With: Briseyda Tang MD Medical Necessity - Tobacco Use Smoking Status: Never smoker Meaningful Use Info Meaningful Use Diagnoses (Choose all that apply): None applicable
[2019-10-23] MEDS: Enoxaparin 40 MG/0.4 ML Syringe SC (11:19)
[2019-10-23] MEDS: Senna/Docusate Sodium 1 Tablet PO (11:19)
--- NOTE | 2019-10-23 17:10 | CASEMGMT ---
Social Work Brief Assessment - Labor and Delivery Unit Refer documentation below for further details. Date of Referral/Notification: 10/22/2019 Time of Referral: 02:40 Reason for Referral: History of Post- Depression (PPD) Date of Intervention: 10/23/2019 Time of Intervention: 17:10 Informant: Medical record and mother of baby (MOB) Assessment: Met with MOB and FOB- Luis Cobian in room. Introduced role and reason for referral. MOB and FOB now have 4 children together. MOB gave to twin girls, Adelaida and Amy on 10/21/2019. MOB states she and twins are doing well. MOB reports is doing combination of breast and bottle feeding. Discussed history of PPD. MOB states was not treated with medication for PPD and believes it was more anxiety when she went back to work after having her first child. MOB denies any needs or referrals. MOB reports good support from and family. Educational information on PPD reviewed and provided to MOB and FOB. Updated nursing on the above. Nursing voices no concerns. Plan: Home with resources provided. No further needs requested or indicated. -Avis Brown, PROJECT MANAGEMENT ENGINEER, WATCH DIAL STONER
[2019-10-24] MEDS: Naproxen 250 MG Tablet 500 MG PO ×2 (03:21→10:14)
[2019-10-24 03:22] VITALS: BP 130/71; PULSE 78; RESP 16; TEMP 36.3
[2019-10-24] MEDS: Acetaminophen 500 MG Tablet 1000 MG PO (06:21)
[2019-10-24 08:35] VITALS: BP 135/74; PULSE 73; RESP 16; TEMP 36.6; O2SAT 98
[2019-10-24 08:36] VITALS: BP 135/74; PULSE 73
[2019-10-24] MEDS: Enoxaparin 40 MG/0.4 ML Syringe SC (10:14)
--- NOTE | 2019-10-24 11:07 | PN.OBGYN_ITS ---
Subjective: Doing well per patient and nursing staff. Ambulating and taking PO without difficulty. Voiding and having BM. and supplementing with formula. Pain controlled. Planning D/C home today. - Physical Exam Vitals/I&O's: Vital Signs Temp Pulse Resp BP Pulse Ox 97.8 F 73 16 135/74 H 98 10/24/19 08:35 10/24/19 08:36 10/24/19 08:35 10/24/19 08:36 10/24/19 08:35 Oxygen Delivery Method Room Air Weight: 272 lb 4.334 oz Body Mass Index (BMI) 48.2 Intake and Output for Last 24 Hours 10/22/19 10/23/19 10/24/19 23:59 23:59 23:59 Intake Total 1248.33 / 1248.33 Output Total 925 / 925 Balance 323.33 / 323.33 General: Alert, Oriented x3, Cooperative HEENT: Atraumatic, Normocephalic Neck: Trachea Midline Lungs: Clear to auscultation, Normal air movement, No rhonchi, No wheeze Cardiovascular: Regular rate, Regular Rhythm, No murmurs Abdomen: Bowel Sounds Present - appropriately tender. Dressing dry and intact Extremities: Edema - +1 BLE edema pitting. Cami's negative Psych/Mental Status: Normal Affect, Appropriate Current Medications Acetaminophen (Tylenol) 1,000 mg PO Q6H [facility] Last Admin: 10/24/19 06:21 Dose: 1,000 mg Documented by: Bisacodyl (Dulcolax) 10 mg RECTAL UD PRN PRN Reason: If no BM Enoxaparin Sodium (Lovenox) 40 mg SC DAILY [facility] Last Admin: 10/24/19 10:14 Dose: 40 mg Documented by: Hydrocortisone (Hytone) 1 applic TOPICAL TID PRN PRN; Protocol PRN Reason: Discomfort Naloxone HCl 4 mg/ Dextrose 504 mls @ 0 mls/hr IV .Q0M PRN; Protocol PRN Reason: Respiratory depression Methylergonovine Maleate (Methergine) 0.2 mg IM X1 PRN PRN Reason: Uterine Atony Naloxone HCl (Narcan) 0.02 mg IV Q1M PRN PRN Reason: RR <10 and pt unresponsive Naproxen (Naprosyn) 500 mg PO Q8H [facility] Last Admin: 10/24/19 10:14 Dose: 500 mg Documented by: Ondansetron HCl (Zofran) 4 mg IV Q4H PRN PRN PRN Reason: Nausea Oxycodone HCl (Oxyir) 5 - 10 mg PO Q4H PRN PRN PRN Reason: Pain Score 4-10/10 Prochlorperazine Edisylate (Compazine Iv) 10 mg IV Q6H PRN PRN PRN Reason: NAUSEA Senna/Docusate Sodium (Senokot-S, Jacqueline-Colace) 0 tablet PO DAILY [facility] Last Admin: 10/24/19 10:16 Dose: Not Given Documented by: Simethicone (Mylicon) 80 mg PO PCHS PRN PRN Reason: Indigestion/stomach pain Sodium Chloride () 5 - 15 ml IV UD PRN PRN Reason: SALINE FLUSH Last Admin: 10/22/19 20:37 Dose: 10 ml Documented by: Medical Necessity - Tobacco Use Smoking Status: Never smoker Assessment/Plan All Active Problems Decreased movement (Acute) 35 weeks gestation of (Acute) Dichorionic diamniotic twin (Acute) A:POD #3 LTCS due to breech twin gestation P: 1) Routine and postoperative care 2) Review dressing after 7 days 3) Follow up in 1 week for incision check. 6 weeks for visit. 4) Pain medication to pharmacy 5) D/C home
== END 2019-10-24 11:45 | disposition home or self-care (01) | DRG 784 ==
PROVIDERS: Admitting Provider Obstetrics & Gynecology; PCP Student in an Organized Health Care Education/Training Program; Referring Provider Obstetrics & Gynecology; Visit Provider Obstetrics & Gynecology
DX: O32.1XX1 Maternal care for breech presentation, fetus 1 (principal); O10.92 Unspecified pre-existing hypertension complicating childbirth; O32.1XX2 Maternal care for breech presentation, fetus 2; O30.043 Twin pregnancy, dichorionic/diamniotic, third trimester; Z3A.37 37 weeks gestation of pregnancy; Z37.2 Twins, both liveborn
CPT/HCPCS: 85025; 85027; 86850; 86900; 86901; 87635; 88302; 88307; 99218; 99251; C9803; J7040; J7120; A4216; G0378; G0463; U0003

== ENCOUNTER 2020-09-21 10:00 | Outpatient (RCR) | payer BC, SELFPAY ==
[2019-10-21 16:16] VITALS: BMI 48.2
--- NOTE | 2020-09-02 08:05 | HP.PTEVAL ---
Patient's Visit Information POLI STOLL is a 35 year old F referred to Physical Therapy by Dr. Nadeem Delgado DO with a diagnosis of Diastasis of rectus abdominis. Date of Evaluation: 08/24/20 Physical Therapist: Cooper Abreu DPT - Visit Plan Frequency: 1x/Week Duration: 4 Weeks Plan: The pt. is currently independent with her HEP of light transverse abdominis strengthening, glute bridges, prone push ups, and lat pull downs. The pt. is to continue to progress her transverse abdominis and multifidus strength, as well as incorporating functional movements that can allow the pt. to appropriately activate her core. Incorporate diaphragmatic breathing, posture education, and vocational auto body instructor correction if the pt. is not already doing this. Educate pt. about proper ways to roll out of bed, so she can put less strain on her rectus abdominis. - Subjective Pt. is a 35 yo female coming into the clinic for diastasis of the rectus abdominis. The pt. reported that she has been having pain ever since she had a with her twins 10 months ago. The pt. reports pain within the abdominal region, as well as pain in the left side of her lumbar spine and is worse in the morning or after strenuous activity. The pt. states that she has a hard time getting out of bed, holding her children, walking for long periods of time, and lying on her stomach. The pain is ranked a 2/10 most of the time, but pain can get up to 7-8/10. To reduce her pain, the pt. states she sleeps on one of her sides during the night or limits her activity. She is participating in low impact exercises as of right now, which consists of side stepping with weight or walking up to 30 minutes when she isn't having pain. The pt. denies any N/T, but has had back pain three years ago and was due to nerve impingement at S1-S2. The pt. would like to get back to doing ADL's, exercising, and picking up her children without pain. - Pain Abdominal Region Pain Intensity (Out of 10): 2 Pain Intensity Range: 8 - Objective Posture: Rounded shoulders bilat, minimal increase in thoracic kyphosis, minimal forward head. ROM: Lower Extremity all WNL. MMT: Bilat Hip Abduction 5/5, hip extension not tested due to pain, Bilat hip flexion 5/5, Bilat knee extension 5/5, Bilat dorsiflexion/eversion 5/5, bilat great toe extension 5/5, bilat eversion 5/5, R knee flexion 5/5, L knee flexion 4/5, rectus abdominis 3/5,. transverse abdominus contraction felt. Sensation: Lower Extremity all WNL. Reflexes: Patellar Bilat WNL = +2, Achilles Bilat WNL = +2. Rectus Abominus separation: 4 finger width. Special Tests: -ZENAIDA, -FADIR -hip joint cleared. Pt. presented to the clinic today with diastasis of the rectus abdominus. The pt. has a separation of about 4 finger width of the rectus abdominus and occurred due to having twins 10 months ago. The pt. exhibited weak strength, poor posture and weak activation of the abominal musculaure and is unable to lay on her stomach due to pain. The pt. is needing PT to address the impairments so she can black pickler her children and perform ADL's without pain. - Goals Goal 1:: LTG: Pt. will be compliant and independent with her HEP. Goal Time Frame: 2-4 Weeks Goal 2:: LTG: The pt. will be a 5/5 in rectus abdominis strength, so she can get out of bed without using the log roll method. Goal Time Frame: 2-4 Weeks Goal 3:: LTG: The pt. will be able to hold her children with pain less than a 1/10. Goal Time Frame: 2-4 Weeks Goal 4:: LTG: The pt. will be able to out her shoes on with pain less than a 1/10. Goal Time Frame: 2-4 Weeks - Rehabilitation Potential Physical Therapy Diagnosis: The pt. presents to the clinic with signs and symptoms consistent of diastasis of rectus abdominus. The pt. needs PT to address the pts. pain and decrease in core strength, as well as the pts. lifting body mechanics. Rehabilitation Potential: Good - Anticipated Interventions Patient/Client Instruction: Educate patient on: Plan of Care For the Purpose of:: To decrease pain, To improve muscle performance and motor function, To improve ability to perform ADL's, To increase tolerance to activity/condition/position, To improve performance and independence with ADL's, To improve tolerance to ADL's Therapeutic Exercise to Include: Strength training, Endurance training, Coordination, Body mechanics, Postural training, Relaxation training, Dynamic Lumbar Stabilization For the Purpose of:: To decrease pain, To improve muscle performance and motor function, To improve ability to perform ADL's, To increase tolerance to activity/condition/position, To improve performance and independence with ADL's, To improve ability of physical actions for home/community/work/leisure, To improve endurance, To improve health and function, To improve tolerance to ADL's Thank you for the opportunity to evaluate your patient. For Medicare and Medicare HMO plans, please review the plan of care and approve it. It will need to be FAXED BACK to us at [phone] for Medicare purposes. For Medicare only, by signing this I certify the plan of care. Please let me know if there are questions or concerns regarding this plan of care. Physician Signature: Date:
--- NOTE | 2020-09-21 13:39 | HP.PTREVAL_ITS ---
Dr. Nadeem Delgado, DO, It has been my pleasure to treat POLI STOLL over the last 5 visits for Diastasis of rectus abdominis. Please see the progress note below for an update on the physical therapy plan of care! Subjective: Pt. stated that she has been doing her exercises at home and does feel some muscle soreness in her legs after doing deadlifts with a weight. The pt. feels that she is getting stronger and that her abdomen does not cause as much pain as it did before she started PT. Objective/Function: The pt. did well with therapy today and was able to progress all exercises. She feels that she can perform all exercises on her own at home and was educated on the different exercises and how to progress them at home w ith the equipment that she has. She still exhibits about 2-3 finger widths separation between her rectus abdominis musculature, but it has gotten better and does not cause the pt. as much pain when performing ADL's at home or doing exercises. She states that she has improved about 30% since her first visit a couple of weeks ago. Plan Plan: The pt. plans to meet with Dr. Delgado on November 02 to talk about how she has improved from therapy and decide if she needs to continue seeing PT. The pt. will be independent with a HEP program where she will perform exercises 3-5 times a week. Goals Goal 1:: LTG: Pt. will be compliant and independent with her HEP. Goal Time Frame: 2-4 Weeks Goal Progress: Goal Met Goal 2:: LTG: The pt. will be a 5/5 in rectus abdominis strength, so she can get out of bed without using the log roll method. Goal Time Frame: 2-4 Weeks Goal Progress: Progressing Goal 3:: LTG: The pt. will be able to hold her children with pain less than a 1/10. Goal Time Frame: 2-4 Weeks Goal Progress: Goal Met Goal 4:: LTG: The pt. will be able to put her shoes on with pain less than a 1/10. Goal Time Frame: 2-4 Weeks Goal Progress: Goal Met Anticipated Interventions Patient/Client Instruction: Educate patient on: Plan of Care For the Purpose of:: To decrease pain, To improve muscle performance and motor function, To improve ability to perform ADL's, To increase tolerance to activity/condition/position, To improve performance and independence with ADL's, To improve tolerance to ADL's Therapeutic Exercise to Include: Strength training, Endurance training, Coordination, Body mechanics, Postural training, Relaxation training, Dynamic Lumbar Stabilization For the Purpose of:: To decrease pain, To improve muscle performance and motor function, To improve ability to perform ADL's, To increase tolerance to activity/condition/position, To improve performance and independence with ADL's, To improve ability of physical actions for home/community/work/leisure, To improve endurance, To improve health and function, To improve tolerance to ADL's Please do not hesitate to contact me at [phone] by phone or if you have questions or concerns regarding this new plan of care! Sincerely, RIVERA PerezT
--- NOTE | 2021-03-22 10:41 | HP.PT.NRP ---
POLI STOLL was seen in my office for initial evaluation on 08/24/20. The following Plan of Care was established for this patient: Initial Frequency: 1x/Week Initial Duration: 4 Weeks Patient/Client Instruction: Educate patient on: Plan of Care For the Purpose of:: To decrease pain, To improve muscle performance and motor function, To improve ability to perform ADL's, To increase tolerance to activity/condition/position, To improve performance and independence with ADL's, To improve tolerance to ADL's Therapeutic Exercise to Include: Strength training, Endurance training, Coordination, Body mechanics, Postural training, Relaxation training, Dynamic Lumbar Stabilization For the Purpose of:: To decrease pain, To improve muscle performance and motor function, To improve ability to perform ADL's, To increase tolerance to activity/condition/position, To improve performance and independence with ADL's, To improve ability of physical actions for home/community/work/leisure, To improve endurance, To improve health and function, To improve tolerance to ADL's This patient was last seen in our office 09/21/20. Pertinent comments regarding their Physical therapy will appear below: Pt. was seen for her diastasis recti in PT. Pt. at her last visit with to follow up with physician and determine if further PT is warranted. Pt. has not been seen in several months and will be DC from PT at this point in time. At this point I will be discontinuing this patient from physical therapy. I would be happy to see this patient again in the future if found appropriate by the physician. Thank you! Cooper Abreu, DPT Balance/Gait/Functional tests - Balance/Special Test Scores Lower Extremity Functional Score: 77
== END 2020-09-21 19:00 | disposition home or self-care (01) ==
LOC: PT 10:00
PROVIDERS: PCP Student in an Organized Health Care Education/Training Program; Referring Provider Student in an Organized Health Care Education/Training Program; Visit Provider Student in an Organized Health Care Education/Training Program
DX: M62.08 Separation of muscle (nontraumatic), other site (principal)
CPT/HCPCS: 97110; 97161

== ENCOUNTER 2020-11-11 17:06 | Observation (INO) | payer BC, SELFPAY ==
[2019-10-21 16:16] VITALS: BMI 48.2
[2020-11-11 17:08] VITALS: BP 152/78; PULSE 84; RESP 16; TEMP 36.7; O2SAT 97; BMI 43.4
--- NOTE | 2020-11-11 17:54 | US_ITS ---
INDICATION: PAIN-ABD EXAMINATION: US Abdomen RUQ (limited) TECHNIQUE: Cisneros-scale and color Doppler imaging was performed of the abdomen. COMPARISON: None. Findings: The liver is diffusely homogenous with overall increased echogenicity. There is no evidence of contour nodularity. No focal hepatic mass is identified. The main portal vein is normal in size and patent demonstrating hepatopetal flow. The gallbladder is remarkable for innumerable shadowing stones. Sonographic Mclean''s tenderness is appreciated. There is no evidence of intrahepatic biliary ductal dilatation. The CBD is nondilated measuring 4 mm at the level of the phuong hepatis. The visualized portions of the pancreas are unremarkable without evidence of focal or diffuse enlargement. Specifically, the body and tail is obscured by overlying bowel gas. Right kidney measures 11.3 cm in length. It is normal in echogenicity. No focal renal lesion is identified. There is no evidence of hydronephrosis. US/Gallbladder IMPRESSION: Acute cholecystitis. Fatty liver. Electronically Signed: Rudolph Richardson MD at 18:56 EDT Tel , Service support ,
--- NOTE | 2020-11-11 17:54 | EKG12_ITS ---
Test Reason : ABD. PAIN Blood Pressure : / mmHG Vent. Rate : 050 BPM Atrial Rate : 050 BPM P-R Int : 148 ms QRS Dur : 072 ms QT Int : 410 ms P-R-T Axes : 037 012 022 degrees QTc Int : 373 ms Sinus bradycardia Otherwise normal ECG Confirmed by AKANKSHA ROSSI, ROBBIN ([id number]), marketing editor BHARAT ROMANO ([id number]) on 11/15/2020 10:23:17 AM Referred By: SEVEN Confirmed By:ROBBIN VALE MD
[2020-11-11] MEDS: Ondansetron 4 MG/2 ML Vial IV (18:06)
[2020-11-11] MEDS: Ketorolac 15 MG/ML Vial IV (18:06)
[2020-11-11] MEDS: 0.9% Normal Saline 1,000 ML 1000 ML IV (18:06)
[2020-11-11] MEDS: Famotidine 200 MG/20 ML MDV 20 MG in 0.9% Normal Saline (Pres. free 8 ML 300 MG IV (18:12)
[2020-11-11 18:16] LABS: Mucous, Urine 0 SEEN /hpf (<or=2+); Red Blood Cells-Urine 0 SEEN /hpf (0-5)
[2020-11-11 18:18] LABS: Absolute Lymphocyte Count 1.73 X10^3/uL (0.83-4.51); Absolute Neutrophil Count 5.2 X10^3/uL (2.0-7.7); Basophil# 0.04 X10^3/uL; Basophil% 0.5 % (0-1); Eosinophil# 0.26 X10^3/uL; Eosinophils% 3.4 % (0-5); Hematocrit 39.3 % (37-47); Hemoglobin 12.6 g/dL (12.0-15.0); Lymphocyte # 1.73 X10^3/ul (0.83-4.51); Lymphocyte % 22.6 % (19-41); Mean Corp Hgb Conc 32.1 g/dL (32-36); Mean Corpuscular Hgb 27.5 pg (27.0-32.0); Mean Corpuscular Volume 85.6 fL (81-99); Mean Platelet Vol. 9.4 fl (6.2-12.0); Monocyte# 0.46 X10^3/uL; NRBC Flagged by Analyzer 0 % (0-5); Neutrophil # 5.16 X10^3/uL (2.7-7.7); Neutrophil % 67.2 % (47-70); Platelet Count 257 K/mm3 (150-450); RBC Distribution Width CV 12.7 % (11.6-14.6); RBC Distribution Width SD 39.1 fl (35.1-43.9); Red Blood Count 4.59 M/mm3 (4.2-5.4); White Blood Count 7.7 K/mm3 (4.4-11.0)
[2020-11-11 18:21] LABS: Color, Urine Yellow (Yellow); Glucose, Dipstick Normal (Normal); Ketone-Dipstick Negative (Negative); Leukocyte Esterase-Dipstick 25 /ul (Negative); Nitrite-Dipstick Negative (Negative); Occult Blood-Urine Negative /ul (Negative); Protein-Dipstick Negative (Negative); Specific Gravity, Urine 1.025 (1.002-1.030); Urine Bilirubin Dipstick Negative (Negative); Urine Clarity Clear (Clear); Urine Urobilinogen Normal (Normal)
[2020-11-11 18:28] LABS: Bacteria 1+ /hpf (None Seen); Internal QC Validated? YES +Cl - CLEAR BKGD; Pregnancy, Urine Negative Negative; Squamous Epithelial Cells - UA 5-10 SEEN /hpf (5-10); White Blood Cells 0-5 SEEN /hpf (0-5)
[2020-11-11 18:34] LABS: ALB/GLOB Ratio 0.9 RATIO (0.9-2.4); AST(SGOT) 21 U/L (15-37); Alanine Aminotransfer ALT/SGPT 27 U/L (13-56); Albumin, Serum 3.5 g/dL (3.2-5.0); Alkaline Phosphatase 60 U/L (45-117); Anion Gap 6 (5-15); BUN 12 mg/dL (7-18); BUN/Creat Ratio 14.7 RATIO (10-20); Calcium,Total 8.7 mg/dL (8.5-10.1); Chloride 106 mmol/L (98-107); Creatinine, Serum 0.82 mg/dL (0.55-1.02); EST Glomerular Filtration Rate 85 mL/min (>60); Est Glom Filt Rate - Afr Amer 103 mL/min (>60); Estimated Creatinine Clearance 79.97 ml/min; Globulin 3.8 g/dL (2.2-4.2); Glucose 110 mg/dL (74-106); Lipase 132 U/L (73-393); Potassium 3.9 mmol/L (3.5-5.1); Protein, Total 7.3 g/dL (6.4-8.2); Sodium Level 140 mmol/L (136-145); Troponin-I HS < 3.0 pg/mL (3.0-53.7)
--- NOTE | 2020-11-11 18:47 | ED.VIS.GI ---
HPI HPI - GI History of Present Illness Chief Complaint: Abd Pain Informant: patient Narrative Narrative: Patient is a 35-year-old female present with right upper quadrant abdominal pain. Patient states it started around 4 PM today. Patient states it is a burning/stabbing pain. She notes the pain is so severe she feels she is going to pass out. She states the pain is in her epigastric region but then started to radiate more to her right upper quadrant. She knows she has had intermittent pain similar to this in the past but always attributed to drinking pop. She did not have any carbonated beverages today however she did have a crispy chicken wrap with fries around noon for lunch. She notes some mild nausea but denies any vomiting. She states she has been having normal bowel movements denies any black or blood in her stool. Last menstrual period was about 2 weeks ago and she does not think she is . She has had a prior tubal ligation. No other complaints at this time. PFSH PFSH Medical History Non-smoker Home Medications NK 11/11/20 [History Last Taken Unknown] Allergy/AdvReac Type Severity Reaction Status Date / Time adhesive AdvReac REDNESS TO Verified 11/11/20 17:07 AREA Surgical History Hx of tubal ligation Social History Smoking Status: Never smoker ROS ROS ED Constitutional Constitutional ED: Denies chills or fever(s) ENT ENT ED: Denies rhinorrhea or sore throat Cardiovascular Cardiovascular: Denies chest pain Respiratory/Chest Respiratory/Chest: Denies cough or dyspnea Gastrointestinal Gastrointestinal: Reports abdominal pain and nausea; Denies constipation, diarrhea or vomiting Genitourinary Genitourinary ED: Denies dysuria or hematuria Musculoskeletal Musculoskeletal: Denies arthralgias or myalgias Integumentary Denies rash Neurologic Neurologic: Denies headache(s) or weakness Psychiatric Psychiatric: Denies anxiety or depression EXAM Physical Exam Const Vital Signs: 11/11/20 17:08 Temperature 98.0 F Temperature Source Temporal Pulse Rate 84 Respiratory Rate 16 Blood Pressure 152/78 H Blood Pressure Mean 102 Pulse Ox 97 Oxygen Delivery Method Room Air Positive well nourished, well developed and obese General Appearance ED: well developed Nutritional Appearance: obese HEENT normocephalic and atraumatic Eyes PERRL and EOMs intact bilaterally Neck supple and no JVD Resp normal respiratory effort and clear to auscultation bilaterally Cardio regular rate, regular rhythm and no murmurs GI non-distended Auscultation: normoactive bowel sounds Palpation: soft and tender RUQ and Mclean's sign; Negative for guarding or rigid Back/Spine no CVA tenderness Extremity full ROM General Extremety ED: Yes edema General Extremity: edema Neuro moves all extremities and no sensory deficits noted Sensorium / Orientation: alert, oriented to person, oriented to place and oriented to time Psych mental status grossly normal Skin no wounds Lesions: no lesions Rashes: no rashes MDM MDM MDM Narrative Medical decision making narrative: Patient is evaluated for sudden onset of right upper quadrant abdominal pain. She appears nontoxic and in no acute distress. She is treated with Toradol, Zofran, Pepcid and fluids in the ER. Presentation is concerning for acute cholecystitis given her area of pain and the fact that it occurred after eating fries and fried food today. Right upper quadrant ultrasound is concerning for acute cholecystitis. Cardiac work-up is normal. A consulted surgery on-call, Dr. Ziegler, who came down to evaluate the patient. She started on IV Zosyn and will be admitted for planned laparoscopic cholecystectomy tomorrow morning. Patient is agreeable with this plan of care. Lab Data Labs: Laboratory Results - last 24 hr 11/11/20 11/11/20 11/11/20 17:21 18:05 18:05 WBC 7.7 RBC 4.59 Hgb 12.6 Hct 39.3 MCV 85.6 MCH 27.5 MCHC 32.1 RDW Std Deviation 39.1 RDW Coeff of Karri 12.7 Plt Count 257 MPV 9.4 Immature Gran % (Auto) 0.300 Neut % (Auto) 67.2 Lymph % (Auto) 22.6 [place] % (Auto) 6.0 Eos % (Auto) 3.4 Baso % (Auto) 0.5 Absolute Neuts (auto) 5.2 Absolute Lymphs (auto) 1.73 Nucleated RBC % 0 Sodium 140 Potassium 3.9 Chloride 106 Carbon Dioxide 28.0 Anion Gap 6 BUN 12 Creatinine 0.82 Estim Creat Clear Calc 79.97 Est GFR (MDRD) Af Amer 103 Est GFR (MDRD) Non-Af 85 BUN/Creatinine Ratio 14.7 Glucose 110 H Calcium 8.7 Total Bilirubin 0.30 AST 21 ALT 27 Alkaline Phosphatase 60 Troponin I High Sens < 3.0 L Total Protein 7.3 Albumin 3.5 Globulin 3.8 Albumin/Globulin Ratio 0.9 Lipase 132 Urine Color Yellow Urine Clarity Clear Urine pH 6.0 Ur Specific [place] 1.025 Urine Protein Negative Urine Glucose (UA) Normal Urine Ketones Negative Urine Occult Blood Negative Urine Nitrite Negative Urine Bilirubin Negative Urine Urobilinogen Normal Ur Leukocyte Esterase 25 H Urine RBC 0 SEEN Urine WBC 0-5 SEEN Ur Squamous Epith Cells 5-10 SEEN Urine Bacteria 1+ Urine Mucus 0 SEEN Urine Test Negative Radiography Diagnostic Testing: Radiology Impression Gallbladder Ultrasound 11/11/20 17:54 IMPRESSION: Acute cholecystitis. Fatty liver. Electronically Signed: Rudolph Richardson MD at 18:56 EDT Tel , Service support , Rhythm Strip Rhythm Strip: Sinus Rhythm Rate: 50 Ectopy: None EKG Initial EKG: Attestation: I personally reviewed and interpreted this EKG as follows: Interpretation: Sinus Bradycardia Comments: Sinus bradycardia at a rate of 50 Normal axis Normal intervals Normal ST segments Discharge Plan Triage Chief Complaint: Abd Pain ED Provider: Laila Conteh Dx/Rx/DC Orders Clinical Impression: Cholecystitis, acute with cholelithiasis Primary Care Provider: Nadeem Delgado Disposition Disposition: Acute Care [facility] Discharge Date/Time: 11/11/20 20:57
--- NOTE | 2020-11-11 19:29 | EX.PCM.CON.S ---
Assessment & Plan Assessment/Plan (1) Cholecystitis, acute with cholelithiasis: QUALIFIERS: Biliary obstruction: without biliary obstruction Qualified Code(s): K80.00 - Calculus of gallbladder with acute cholecystitis without obstruction PLAN: Plan will be to perform a laparoscopic cholecystectomy tomorrow. Risk benefits to include bleeding infection possible injury to surrounding structures possible needing a drain possible being open were all discussed openly. Patient also understands blood clots heart attacks pneumonia strokes up to and including or general risk of surgery. All questions asked were answered and she is willing to proceed. HPI Consult Data Date of Consult: 11/11/20 HPI Narrative HPI Narrative: POLI STOLL, is a 35 F who presents to the emergency department with acute onset of right upper quadrant abdominal pain. Began at about 4:00 this afternoon. Approximately 4 hours after she had lunch. She has been having intermittent epigastric and right upper quadrant abdominal pain for months she actually thought it was just her diastases recti when she looks back on it the pain is quite similar burning in nature does not really going to the back she does have some nausea but no vomiting. Only emergency department gallbladder ultrasound was obtained which showed numerous shadowing stones sonographic Mclean's tenderness no evidence of intrahepatic biliary ductal dilatation, bile duct was 4 mm. It was read as acute cholecystitis. [facility] Home Medications Prenatabs FA 1 tab PO DAILY 10/07/19 [History Last Taken 10/21/19 06:45] Allergy/AdvReac Type Severity Reaction Status Date / Time adhesive AdvReac REDNESS TO Verified 11/11/20 17:07 AREA Surgical History Hx of tubal ligation Social History Smoking Status: Never smoker ROS ENT HEENT: Denies dysphagia Cardiovascular Cardiovascular: Denies chest pain Respiratory/Chest Respiratory/Chest: Denies cough or dyspnea Gastrointestinal Gastrointestinal: Reports abdominal pain, bloating and nausea; Denies coffee ground emesis, constipation, diarrhea, dysphagia, melena, rectal bleeding or vomiting Physical Exam Const alert, oriented x3 and no apparent distress General Appearance: cooperative HEENT normocephalic and head/scalp atraumatic Eyes PERRL and EOMs intact bilaterally Resp clear to auscultation bilaterally Cardio Rate: regular rate Rhythm: regular rhythm GI soft to palpation Palpation: tender epigastric and RUQ; Negative for guarding or hernia Skin no jaundice Neuro CN's II-XII intact bilaterally Lab / Micro Data Result Diagrams: 11/11/20 18:05 11/11/20 18:05 Labs: Laboratory Results - last 24 hr 11/11/20 17:21: Urine Color Yellow, Urine Clarity Clear, Urine pH 6.0, Ur Specific [place] 1.025, Urine Protein Negative, Urine Glucose (UA) Normal, Urine Ketones Negative, Urine Occult Blood Negative, Urine Nitrite Negative, Urine Bilirubin Negative, Urine Urobilinogen Normal, Ur Leukocyte Esterase 25 H, Urine RBC 0 SEEN, Urine WBC 0-5 SEEN, Ur Squamous Epith Cells 5-10 SEEN, Urine Bacteria 1+, Urine Mucus 0 SEEN, Urine Test Negative 11/11/20 18:05: WBC 7.7, RBC 4.59, Hgb 12.6, Hct 39.3, MCV 85.6, MCH 27.5, MCHC 32.1, RDW Std Deviation 39.1, RDW Coeff of Karri 12.7, Plt Count 257, MPV 9.4, Immature Gran % (Auto) 0.300, Neut % (Auto) 67.2, Lymph % (Auto) 22.6, [place] % (Auto) 6.0, Eos % (Auto) 3.4, Baso % (Auto) 0.5, Absolute Neuts (auto) 5.2, Absolute Lymphs (auto) 1.73, Nucleated RBC % 0 11/11/20 18:05: Sodium 140, Potassium 3.9, Chloride 106, Carbon Dioxide 28.0, Anion Gap 6, BUN 12, Creatinine 0.82, Estim Creat Clear Calc 79.97, Est GFR (MDRD) Af Amer 103, Est GFR (MDRD) Non-Af 85, BUN/Creatinine Ratio 14.7, Glucose 110 H, Calcium 8.7, Total Bilirubin 0.30, AST 21, ALT 27, Alkaline Phosphatase 60, Troponin I High Sens < 3.0 L, Total Protein 7.3, Albumin 3.5, Globulin 3.8, Albumin/Globulin Ratio 0.9, Lipase 132 Radiology Impression Gallbladder Ultrasound 11/11/20 17:54 IMPRESSION: Acute cholecystitis. Fatty liver. Electronically Signed: Rudolph Richardson MD at 18:56 EDT Tel , Service support ,
[2020-11-11 20:02] VITALS: BMI 42.0
[2020-11-11] MEDS: 0.9% Normal Saline 1,000 ML 75 ML IV (20:39)
[2020-11-11 20:41] VITALS: BP 148/85; PULSE 61; RESP 15; TEMP 36.6; O2SAT 98
[2020-11-11 21:03] VITALS: BP 150/72; PULSE 50; RESP 16; TEMP 36.9; O2SAT 100
[2020-11-11 21:30] VITALS: PULSE 54
[2020-11-11 21:47] VITALS: RESP 16; O2SAT 99
[2020-11-11 23:00] VITALS: PULSE 64
[2020-11-12] VITALS (12 sets, daily range): BP systolic 112–152; BP diastolic 60–86; PULSE 51–73; RESP 16–18; TEMP 36.1–36.9; O2SAT 10–100; BMI 42.0
--- NOTE | 2020-11-12 | GALL_PTH ---
PATIENT: POLI STOLL LOC: PCU U#:[id number] AGE/SX: 35/F ROOM: [facility] RE11/11/[address]: Dr. Jefe Ziegler MD : 1985 BED: 1 DIS: 11/12/2020 SPEC #: [id number] RECD: 11/14/20 08:10 STATUS: ANILA NASEEM #: [id number] GIOVANNA: 11/12/20 00:[address]: Jefe Ziegler DEPT: SURGICAL PATHOLOGY RECD BY: Julio Crawford ENTERED: 11/14/20 08:46 SP TYPE: NOAH ALMAGUER DR: Dr. Nadeem Delgado, DO Tissues: Gallbladder, NOS Procedures: Surgery Specimen Level III HEADER OPERATION: Laparoscopic cholecystectomy PRE-OP DIAGNOSIS: Cholecystitis TISSUE SUBMITTED: Gallbladder MICROSCOPIC DIAGNOSIS Gallbladder, cholecystectomy: Cholesterolosis, chronic cholecystitis and cholelithiasis. AM:letha 11/15/2020 MICROSCOPIC DESCRIPTION Slides are reviewed. GROSS DESCRIPTION Received is one container labeled with the patient's name and designated gallbladder. The specimen consists of a gallbladder measuring 8.5 cm in length and up to 3 cm in diameter. No cheyanne are noted at the cystic duct margin. The external surface is pink-belle, smooth and glistening for the most part. Focally it is granular, hemorrhagic and contains cautery artifact. The gallbladder contains green-yellow mucoid bile. Also present in the gallbladder and also in the container are multiple, multifaceted, irregular yellowish-green to brown stones and stone fragments measuring in aggregate 4 x 3.5 x 1 cm and 0.2 to 0.8 cm in greatest dimension. The mucosa also shows several yellowish streaks consistent with cholesterolosis. The mucosa is bile-stained and without any mass lesions. The gallbladder wall measures up to 0.3 cm in thickness. Weight Engineer sections from the gallbladder and the cystic duct are submitted in one cassette. / SJ:letha 11/14/20 TC:3 CPT: 99737
[2020-11-12] MEDS: HYDROmorphone 0.5 MG/0.5 ML SYRINGE IV ×3 (03:50→16:23)
--- NOTE | 2020-11-12 05:55 | EKG12_ITS ---
Test Reason : AM EKG Blood Pressure : / mmHG Vent. Rate : 065 BPM Atrial Rate : 065 BPM P-R Int : 162 ms QRS Dur : 084 ms QT Int : 420 ms P-R-T Axes : 038 007 004 degrees QTc Int : 436 ms Normal sinus rhythm Nonspecific T wave abnormality Abnormal ECG When compared with ECG of 11-NOV-2020 18:12, MANUAL COMPARISON REQUIRED, DATA IS UNCONFIRMED Confirmed by ZBIGNIEW ROSSI, TY ([id number]), magazine editor BHARAT ROMANO ([id number]) on 11/15/2020 9:49:51 AM Referred By: TAYLOR Confirmed By:TY COY MD
[2020-11-12] MEDS: Bupivacaine Mpf 0.5% 30 ML VIAL (09:30)
--- NOTE | 2020-11-12 10:09 | OP.PCM_ITS ---
Problems Associated Problem List Diagnoses (1) Cholecystitis, acute with cholelithiasis: Report of Operation Date of Procedure: 11/12/20 Pre-Operative Diagnosis: Acute cholecystitis with cholelithiasis Post-Operative Diagnosis: Same Surgery/Procedure Performed:: Laparoscopic cholecystectomy Surgeon: Jefe Ziegler Type of Anesthesia: General Anesthesiologist: Saritha Espinosa Specimen's removed: Gallbladder Estimated Blood Loss (mL): < 25 cc Description of Procedure: Patient was brought into the operating room. Placed in the supine position. Under excellent general endotracheal ovation the abdomen was sterilely prepped and draped in usual fashion. Local was injected supraumbilically curvilinear incision was made. Dissection was carried down to the fascia. Fascia was grasped with [place]. Varies needle was placed inside the abdomen. The abdomen was insufflated to 15 torr. A 10/12 trocar was placed without difficulty. A subxiphoid #5 trocar was placed, inferior to this another #5 trocar was placed, laterally a #5 trocar was placed. All of these were placed under direct visualization without injury to underlying structures. Patient was placed in the head up and rotated to the left position. I dissected out the cystic duct place hemoclips proximally and distally and ligated the duct identified the cystic artery placed the vaughn proximally distally and ligated the artery deliver the gallbladder from the gallbladder bed with the use of juanjo ctrocautery had good with stasis I did loose for stones which I was able to retrieve when I placed the specimen in a specimen bag and I put the stones in the specimen bag and delivered that through the umbilical port without difficulty. I reinflated the abdomen. Irrigated the right upper quadrant with 2 L of lactated Ringer's had good admit stasis. I removed the trochars under direct visualization good with stasis was noted. Close the fascia the umbilical port with a [id number] stitch of 0 Vicryl. Skin incisions were closed with subcuticular stitches of 4-0 Monocryl. Steri-Strips were applied. Sterile dressings were applied. Patient tolerated the procedure well. Admit VTE Documentation VTE Present on Admission: No VTE Mechan Device Prophylaxis: SCD's VTE Pharm Prophylaxis ordered?: No Reason prophylaxis not ordered:: Treatment Not Indicated
--- NOTE | 2020-11-12 10:14 | EX.PCM.DISCH ---
Discharge Instructions Procedure Gallbladder Diet Discharge Diet: Light diet - advance as tolerated Activity Discharge Activity: May Not Drive (for 2-3 days or while taking narcotic pain medications.) and - (Do not drive, work heavy equipment or sign legal documents for 24 hours.) May shower in (days): 1 (with the bandage in place.) Additional Activity Instructions:: Pain medication may cause nausea. You should typically eat light foods as you take your pain medications. Pain medication may also cause constipation. If this is a problem for you, please discuss with your doctor. Dressing / Incision Call your doctor if your incision/area has: Continuous Slow Oozing, Sudden Increased Bleeding, Increased Pain/ Swelling, Increased Redness and Foul Smelling Discharge Call your doctor if you observe: Fever of 101 or Higher Suture Line Care: Avoid Pulling/Pushing and Avoid Pinching/Bending Additional Dressing/Incision Instructions:: Leave operative bandaids on for 2 days. When you remove dressing, leave Steri-Strips on until your follow-up appointment, or until the Steri-Strips fall off on their own. Follow Up Care Please Follow Up With: Nicolasa Villarreal PADelfinaC When: Call office to schedule an appointment to be seen in 7 days after surgery. Test Results: Test results from this visit will be discussed in further detail at your follow-up appointment, if applicable. Discharge Plan Admission Admit Date/Time: 11/11/20 19:35 Attending Provider: Jefe Ziegler Primary Care Provider: Nadeem Delgado Discharge Orders/Prescriptions Prescriptions: New oxycodone-acetaminophen [Percocet] 5-325 mg tablet 1 tab PO Q4H PRN (Reason: pain) 5 Days Qty: 20 RF: 0 No Action NK RF: 0 Referrals / Follow Up: Nadeem Delgado DO [Primary Care Provider] - Nicolasa Villarreal PADelfinaC [PHYSICIAN PUBLIC RELATIONS ACCOUNT SUPERVISOR] -
--- NOTE | 2020-11-12 11:10 | NURSING ---
vitals vsa late, pt off floor for procedure. Vitals obtained now. WNL.
[2020-11-12] MEDS: 0.9% Normal Saline 1,000 ML 75 ML IV (11:14)
[2020-11-12] MEDS: 0.9% Saline Lock 10 ML Syringe IV ×2 (11:16→16:23)
[2020-11-12] MEDS: oxyCODONE 5 MG Tablet PO ×2 (12:39→18:11)
== END 2020-11-12 18:21 | disposition home or self-care (01) ==
LOC: ED 17:37 → PCU 20:01
PROVIDERS: Admitting Provider Surgery; Emergency Provider Emergency Medicine; PCP Student in an Organized Health Care Education/Training Program; Visit Provider Surgery
PROC: (CPT 47610; principal; 2020-11-12 08:30)
DX: K80.00 Calculus of gallbladder with acute cholecystitis without obstruction (principal)
CPT/HCPCS: 47562; 76705; 80053; 81001; 81025; 83690; 84484; 85025; 87426; 88304; 93005; 96361; 96365; 96375; 96376; 99218; 99251; 99285; J7030; A4216; G0378; G0463; J2405; J3490

== ENCOUNTER 2020-11-13 17:00 | Emergency (ER) | payer BC, SELFPAY ==
[2020-11-12 06:02] VITALS: BMI 42.0
[2020-11-13 17:00] VITALS: BP 180/95; PULSE 64; PULSE 66; RESP 24; TEMP 37.4; O2SAT 96; O2SAT 97; BMI 44.1
--- NOTE | 2020-11-13 17:28 | CT_ITS ---
STUDY: CTA CHEST REASON FOR EXAM: Female, 35 years old. left chest pain, post op lap radha RADIATION DOSAGE (If Supplied By Facility): CTDIvol = ( 11.40 ) mGy, DLP = ( 429.03 ) mGycm TECHNIQUE: The examination was performed with the intravenous administration of IV 100mL Isovue-370. Post-processing of the angiographic images was performed, with multiplanar reformation and 3D reconstruction. Individualized dose optimization techniques were used for this CT. COMPARISON: None. FINDINGS: Normal enhancement of the main pulmonary artery and right and left pulmonary arteries. Normal enhancement of the bilateral peripheral pulmonary arteries. There is no demonstrated pulmonary embolism. Normal thoracic aorta and visualized great vessels. There is no demonstrated aortic dissection. Normal heart and pericardium. Normal mediastinum. Normal hilar regions. Normal visualized trachea and bronchi. The lungs are well expanded. Normal pulmonary parenchyma. Normal pleura. Normal chest wall structures. Normal osseous structures. Small volume ascites adjacent to the liver, partially visualized. CT/CTA Chest W/WO Contrast IMPRESSION: 1. No central or segmental pulmonary embolism. 2. Mild ascites, partially visualized. Electronically Signed: Roly Thompson MD ([place]) at 18:14 EDT , Service support ,
--- NOTE | 2020-11-13 17:28 | EKG12_ITS ---
Test Reason : Blood Pressure : / mmHG Vent. Rate : 069 BPM Atrial Rate : 069 BPM P-R Int : 140 ms QRS Dur : 086 ms QT Int : 372 ms P-R-T Axes : 045 021 001 degrees QTc Int : 398 ms Normal sinus rhythm with sinus arrhythmia Nonspecific T wave abnormality Abnormal ECG Confirmed by AKANKSHA ROSSI, ROBBIN ([id number]), deputy editor in chief BHARAT ROMANO ([id number]) on 11/15/2020 10:31:28 AM Referred By: JEANNE/ROHIT Confirmed By:ROBBIN VALE MD
--- NOTE | 2020-11-13 17:29 | EDS_ITS ---
HPI History of Present Illness Chief Complaint: Abd Pain Informant: patient Narrative Narrative: Patient just had cholecystectomy laparoscopically yesterday. She is actually eating and drinking. Her abdomen is little bit sore but not causing her problem. What brought her in today is that she has pain under the left rib and near the top of the left shoulder. It is a little bit painful to take a deep breath. She feels just very slightly short of breath. She did take meds for pain. That actually helped the shortness of breath also. She denies fevers or chills. No drainage from the port sites. She has no history of DVT or PE. She has no recent travel. No family history of DVT or PE. PFSH PFSH Medical History Non-smoker Home Medications NK 11/11/20 [History Last Taken Unknown] oxycodone-acetaminophen [Percocet] 1 tab PO Q4H PRN 5 Days #20 tab 11/12/20 [Rx Last Taken Unknown] Allergy/AdvReac Type Severity Reaction Status Date / Time adhesive AdvReac REDNESS TO Verified 11/11/20 17:07 AREA Surgical History History of cholecystectomy Hx of tubal ligation Social History Smoking Status: Never smoker ROS ROS ED Constitutional Constitutional ED: Denies chills or fever(s) ENT ENT ED: Denies rhinorrhea or sore throat Cardiovascular Cardiovascular: Reports chest pain; Denies palpitations or racing heartbeat Respiratory/Chest Respiratory/Chest: Reports dyspnea; Denies cough Gastrointestinal Gastrointestinal: Reports abdominal pain; Denies constipation, diarrhea, nausea or vomiting Genitourinary Genitourinary ED: Denies dysuria or hematuria Musculoskeletal Musculoskeletal: Denies back pain or neck pain Integumentary Denies rash Neurologic Neurologic: Denies headache(s), paresthesias or weakness Endocrine Endocrinology: Denies polydipsia or polyuria Allergic/Immunologic Allergic/Immunologic ED: Denies urticaria EXAM Physical Exam Const Vital Signs: 11/13/20 17:00 11/13/20 17:32 Temperature 99.4 F H Temperature Source Temporal Pulse Rate 64 Respiratory Rate 24 H Blood Pressure 180/95 H Blood Pressure Mean 123 Pulse Ox 97 97 Oxygen Delivery Method Room Air Room Air Positive well nourished and well developed General Appearance ED: well developed and NAD Eyes EOMs intact bilaterally Chest Wall inspection of chest normal and palpation of chest normal Resp normal respiratory effort and clear to auscultation bilaterally Resp Narrative: Old pain with a very deep breath. No subcutaneous air. No asymmetry of breath sounds. Auscultation: Negative for rales, rhonchi or wheezes Cardio regular rate and regular rhythm GI GI Narrative: Patient's 4 port sites look good. There is no drainage. No bleeding. No erythema. There is very minimal nonfocal abdominal tenderness. However this would be normal after her surgery. Palpation: soft Back/Spine no CVA tenderness Neuro oriented x3 Sensorium / Orientation: alert Psych mental status grossly normal Skin no rashes or lesions noted MDM MDM MDM Narrative Medical decision making narrative: Blood work shows nonspecific elevation of white count. CT scan shows no sign of a pulmonary embolus. Patient will be sent home. I have placed a page to Dr. Ziegler just to notify him of the patient's arrival and visit. My suspicion is that her symptoms likely come from air under the diaphragm. We discussed reasons to return. Lab Data Labs: Laboratory Results - last 24 hr 11/13/20 11/13/20 17:13 17:13 WBC 11.8 H RBC 4.76 Hgb 13.1 Hct 41.2 MCV 86.6 MCH 27.5 MCHC 31.8 L RDW Std Deviation 40.9 RDW Coeff of Karri 13.0 Plt Count 250 MPV 9.8 Immature Gran % (Auto) 0.300 Neut % (Auto) 82.6 H Lymph % (Auto) 12.6 L [place] % (Auto) 4.1 Eos % (Auto) 0.3 Baso % (Auto) 0.1 Absolute Neuts (auto) 9.7 H Absolute Lymphs (auto) 1.49 Nucleated RBC % 0 Sodium 140 Potassium 3.4 L Chloride 109 H Carbon Dioxide 25.0 Anion Gap 6 BUN 8 Creatinine 0.93 Estim Creat Clear Calc 70.51 Est GFR (MDRD) Af Amer 88 Est GFR (MDRD) Non-Af 73 BUN/Creatinine Ratio 8.6 L Glucose 127 H Calcium 8.7 Troponin I High Sens < 3.0 L Radiography Diagnostic Testing: Radiology Impression Chest CTA 11/13/20 17:28 IMPRESSION: 1. No central or segmental pulmonary embolism. 2. Mild ascites, partially visualized. Electronically Signed: Roly Thompson MD ([place]) at 18:14 EDT , Service support , Discharge Plan Triage Chief Complaint: Abd Pain ED Provider: Jose Maria Salomon Dx/Rx/DC Orders Clinical Impression: Left-sided chest pain Instructions: ED Chest Pain, Uncertain Cause Prescriptions: No Action NK RF: 0 oxycodone-acetaminophen [Percocet] 5-325 mg tablet 1 tab PO Q4H PRN (Reason: pain) 5 Days Qty: 20 RF: 0 Primary Care Provider: Nadeem Delgado Referrals: Jefe Ziegler MD [STAFF PHYSICIAN] - Keep Taisha appointment Nadeem Delgado DO [Primary Care Provider] - Disposition Disposition: Home, Self Care
[2020-11-13 17:32] VITALS: O2SAT 97
[2020-11-13 17:56] LABS: Anion Gap 6 (5-15); BUN 8 mg/dL (7-18); BUN/Creat Ratio 8.6 RATIO (10-20); Calcium,Total 8.7 mg/dL (8.5-10.1); Chloride 109 mmol/L (98-107); Creatinine, Serum 0.93 mg/dL (0.55-1.02); EST Glomerular Filtration Rate 73 mL/min (>60); Est Glom Filt Rate - Afr Amer 88 mL/min (>60); Estimated Creatinine Clearance 70.51 ml/min; Glucose 127 mg/dL (74-106); Potassium 3.4 mmol/L (3.5-5.1); Sodium Level 140 mmol/L (136-145); Troponin-I HS < 3.0 pg/mL (3.0-53.7)
[2020-11-13 18:06] LABS: Absolute Lymphocyte Count 1.49 X10^3/uL (0.83-4.51); Absolute Neutrophil Count 9.7 X10^3/uL (2.0-7.7); Basophil# 0.01 X10^3/uL; Basophil% 0.1 % (0-1); Eosinophil# 0.04 X10^3/uL; Eosinophils% 0.3 % (0-5); Hematocrit 41.2 % (37-47); Hemoglobin 13.1 g/dL (12.0-15.0); Lymphocyte # 1.49 X10^3/ul (0.83-4.51); Lymphocyte % 12.6 % (19-41); Mean Corp Hgb Conc 31.8 g/dL (32-36); Mean Corpuscular Hgb 27.5 pg (27.0-32.0); Mean Corpuscular Volume 86.6 fL (81-99); Mean Platelet Vol. 9.8 fl (6.2-12.0); Monocyte# 0.48 X10^3/uL; Monocyte% 4.1 % (0-10); NRBC Flagged by Analyzer 0 % (0-5); Neutrophil # 9.72 X10^3/uL (2.7-7.7); Neutrophil % 82.6 % (47-70); Platelet Count 250 K/mm3 (150-450); RBC Distribution Width SD 40.9 fl (35.1-43.9); Red Blood Count 4.76 M/mm3 (4.2-5.4); White Blood Count 11.8 K/mm3 (4.4-11.0)
[2020-11-13] MEDS: Morphine 4 MG/ML Syringe IV (18:45)
== END 2020-11-13 19:17 | disposition home or self-care (01) ==
PROVIDERS: Emergency Provider Emergency Medicine; PCP Student in an Organized Health Care Education/Training Program
DX: R07.89 Other chest pain (principal); Z98.890 Other specified postprocedural states
CPT/HCPCS: 71275; 80048; 84484; 85025; 93005; 96374; 99284; Q9967; A4216

== ENCOUNTER 2023-08-02 15:58 | Emergency (ER) | payer BC, SELFPAY ==
[2023-08-02 16:00] VITALS: BP 145/104; PULSE 91; RESP 18; TEMP 35.6; O2SAT 97; BMI 45.4
[2023-08-02 16:03] VITALS: BP 145/105; PULSE 91; RESP 18; TEMP 35.6; O2SAT 97
--- NOTE | 2023-08-02 16:16 | CT_ITS ---
STUDY: CT BRAIN WITHOUT CONTRAST REASON FOR EXAM: Female, 38 years old. Pain RADIATION DOSAGE (If Supplied By Facility): CTDIvol = ( 47.06 ) mGy, DLP = ( 837.39 ) mGycm TECHNIQUE: Transaxial CT imaging of the brain was performed without administration of intravenous contrast material. Individualized dose optimization techniques were used for this CT. COMPARISON: No relevant priors. FINDINGS: Normal soft tissue structures. Normal calvarium. Normal size ventricles and extra-axial spaces for the patient''s age. Normal white matter tracts of the cerebral hemispheres. Normal basal ganglia and thalami. Normal brainstem. Normal cerebellum. There is no intracranial hemorrhage. There are no findings of an acute ischemic infarction. Normal visualized paranasal sinuses. CT/Brain/Head without Contrast IMPRESSION: Normal unenhanced CT scan of the brain. Electronically Signed: Maynor Reddy MD at 16:50 EDT ,
--- NOTE | 2023-08-02 16:17 | EX.ED.VIS.HA ---
HPI History of Present Illness Chief Complaint: Headache Informant: patient Onset/Context/Timing Onset: Today Narrative Narrative: Patient presents secondary to headache. She states she was running errands at noon today when she developed what felt like tunnellike vision of her left eye and developed a right-sided headache. She states about 20 minutes later she started vomiting. She states she will get a migraine about once a year but this 1 seems somewhat different. No recent head injury. No URI symptoms. Denies possibility of with prior tubal ligation. PFSH PFSH Medical History Non-smoker Home Medications NK 11/11/20 [History Last Taken Unknown] oxycodone-acetaminophen 5 mg-325 mg tablet (Percocet) 1 tab PO Q4H PRN pain 5 days #20 tabs 11/12/20 [Rx Last Taken Unknown] Allergy/AdvReac Type Severity Reaction Status Date / Time adhesive AdvReac REDNESS TO Verified 08/02/23 15:59 AREA Surgical History History of cholecystectomy Hx of tubal ligation Social History Smoking Status: Never smoker ROS ROS ED Constitutional Constitutional ED: Denies chills or fever(s) Eyes Eyes: Reports blurry vision; Denies discharge from eye(s) ENT ENT ED: Denies discharge from eye(s), rhinorrhea or sore throat Cardiovascular Cardiovascular: Denies chest pain or palpitations Respiratory/Chest Respiratory/Chest: Denies cough or dyspnea Gastrointestinal Gastrointestinal: Reports nausea and vomiting; Denies abdominal pain or diarrhea Genitourinary Genitourinary ED: Denies dysuria Musculoskeletal Musculoskeletal: Reports myalgias; Denies back pain or extremity pain Integumentary Denies Abrasions or rash Neurologic Neurologic: Reports headache(s); Denies weakness Psychiatric Psychiatric: Denies anxiety or depression Endocrine Endocrinology: Denies polydipsia or polyuria Allergic/Immunologic Allergic/Immunologic ED: Denies lip swelling or urticaria EXAM Physical Exam Const Vital Signs: 08/02/23 16:00 08/02/23 16:03 08/02/23 18:00 Temperature 96.0 F L 96.0 F L Temperature Source Temporal Temporal Pulse Rate 91 91 63 Respiratory Rate 18 18 18 Blood Pressure 145/104 H 145/105 H 106/92 H Blood Pressure Mean 117 118 99 Pulse Ox 97 97 100 Oxygen Delivery Method Room Air Room Air Positive well nourished and well developed General Appearance ED: well developed HEENT Reports normocephalic and moist mucous membranes Eyes EOMs intact bilaterally Resp normal respiratory effort and clear to auscultation bilaterally Cardio regular rate and regular rhythm GI non-tender Palpation: soft Extremity normal to inspection Neuro oriented x3 and no sensory deficits noted Motor Exam: strength 5/5 throughout Psych mental status grossly normal MDM MDM MDM Narrative Medical decision making narrative: IV line established. Patient given fluids along with Toradol, Compazine, Benadryl. Because this is not typical of her migraines a head CT will be obtained to ensure no acute intracranial abnormality such as mass, bleed, edema. History & Record Review Discussion w/independent historian: Patient Radiography Diagnostic Testing: Clinical Impression(s) from Imaging Studies Brain CT 08/02/23 16:16 IMPRESSION: Normal unenhanced CT scan of the brain. Electronically Signed: Maynor Reddy MD at 16:50 EDT , Treatment and Re-Evaluation Narrative: CT scan of the head reveals no acute findings. After patient received Toradol, Compazine, Benadryl, and IV fluids she reported no significant improvement in her headache. She was then given a dose of sumatriptan. On repeat evaluation she reported only mild improvement in her headache. At that point a dose of Depakote along with a dose of Solu-Medrol was ordered. There was a delay in getting the Solu-Medrol sent from the pharmacy. After receiving the Depakote she felt significantly improved. I will cancel the order for the Solu-Medrol and she will be discharged home with family. Discharge Plan Triage Chief Complaint: Headache ED Provider: Giuliana Montaño Dx/Rx/DC Orders Clinical Impression: Migraine Instructions: ED, Migraine (Classical) Prescriptions: No Action NK oxycodone-acetaminophen [Percocet] 5-325 mg tablet 1 tab PO Q4H PRN (Reason: pain) 5 Days Qty: 20 0RF Primary Care Provider: Nadeem Delgado Referrals: Nadeem Delgado, DO [Primary Care Provider] - 3-5 Days if not improving Disposition Disposition: Home, Self Care
[2023-08-02] MEDS: Ketorolac 30 MG/ML Syringe IV (16:28)
[2023-08-02] MEDS: 0.9% Normal Saline (1000mL) 1,000 ML 999 ML IV (16:28)
[2023-08-02] MEDS: DiphenhydrAMINE 50 MG/ML Syringe 25 MG IV (16:29)
[2023-08-02] MEDS: proCHLORPERazine 10 MG/2 ML Vial IV (16:30)
[2023-08-02] MEDS: SUMAtriptan 6 MG/0.5 ML Vial SC (17:47)
[2023-08-02 18:00] VITALS: BP 106/92; PULSE 63; RESP 18; O2SAT 100
[2023-08-02] MEDS: Valproate Sodium 500 MG in Dextrose 5%-Water (50mL Bag) 50 ML 50 MG IV (19:04)
[2023-08-02] MEDS: 0.9% Normal Saline (1000mL) 1,000 ML 150 ML IV (19:06)
[2023-08-02 20:00] VITALS: BP 135/77; PULSE 85; RESP 16; TEMP 37; O2SAT 97
[2023-08-02 20:48] VITALS: BP 135/77; PULSE 79; RESP 16; TEMP 37; O2SAT 97
== END 2023-08-02 20:49 | disposition home or self-care (01) ==
PROVIDERS: Emergency Provider Emergency Medicine; PCP Student in an Organized Health Care Education/Training Program; Visit Provider Emergency Medicine
DX: G43.909 Migraine, unspecified, not intractable, without status migrainosus (principal)
CPT/HCPCS: 70450; 96361; 96365; 96366; 96368; 96372; 96375; 99282; J7030; A4216; J2919; J3030